=== PATIENT | female | born 1935 | race Caucasian/White ===

== ENCOUNTER → 2017-07-02 | Emergency (ER) | payer MEDICARE, OTHER ==
[~2017-07-02] MED LIST: Ciprofloxacin TAB* 500 MG PO ONE; NS 0.9% 1000 ML* 1,000 ML IV ONE; Ondansetron INJ* 2 MG/ML VIAL IV ONE; Ondansetron ODT TAB* 4 MG ONE; Ondansetron ODT TAB* 4 MG PO ONE
--- NOTE | 2017-07-02 06:29 | ED ---
Sunny Cross Angela, scribed for Penny Garnica MD on 07/02/17 at 0626 . Complex/Multi-Sys Presentation - HPI Summary HPI Summary: This pt is a 81 y/o female accompanied by her daughter presenting to [facility] via EMS c/o sudden onset of nausea, vomiting, and diarrhea upon waking up at 0500 today. Pt reports she was diaphoretic upon waking up. She notes she had some vomiting but not too much. Pt denies SOB, chest pain, abd pain. She has an upcoming endoscopy in 3 days, on . Her PCP is Dr. Graves. PMHx: DM, HTN, HLD. Pt denies PMHx of CHF, [place] or strokes. - History Of Current Complaint Chief Complaint: EDGeneral Time Seen by Provider: 07/02/17 06:11 Onset/Duration: Sudden Onset Timing: Constant Associated Signs And Symptoms: Positive: Nausea, Vomiting, Diarrhea, Diaphoresis. Negative: SOB, Chest Pain - Allergies/Home Medications Allergies/Adverse Reactions: Allergies Allergy/AdvReac Type Severity Reaction Status Date / Time Meperidine [From Demerol HCl] AdvReac Severe Vomiting Verified 07/02/17 06:02 enviromental Allergy Coughing Uncoded 07/02/17 06:03 PMH/Surg Hx/FS Hx/Imm Hx Endocrine/Hematology History: Reports: Hx Diabetes - WELL CONTROLLED Cardiovascular History: Reports: Hx Angina - LAST EPISODE MONTHS AGO, Hx Coronary Artery Disease, Hx Hypercholesterolemia, Hx Hypertension - WELL CONTROLLED, Hx Valvular Heart Disease - "Leaky valve", Other Cardiovascular Problems/Disorders - CATHERIZATION Denies: Hx Pacemaker/ICD Respiratory History: Reports: Hx Asthma GI History: Reports: Hx Gastroesophageal Reflux Disease - OCCASIONAL REFLUX, Other GI Disorders - HX DIVERTICULITIS History: Reports: Hx Renal Disease - abnormal gfr, Other Problems/ Disorders - INCONTINENCE Musculoskeletal History: Reports: Hx Tendonitis - RIGHT SHOULDER, Other Musculoskeletal History - ROM, PAIN IN BICEPT x3 months, no injury, PT no improvemnt Sensory History: Reports: Hx Cataracts, Hx Contacts or Glasses - READING GLASSES Denies: Hx Hearing Aid Opthamlomology History: Reports: Hx Cataracts, Hx Contacts or Glasses - READING GLASSES Psychiatric History: Reports: Hx Depression - HX OF Denies: Hx Panic Disorder - Cancer History Cancer Type, Location and Year: SKIN CA ON EAR AND UPPER CHEST AND 2011 ON R HAND - Surgical History Surgery Procedure, Year, and Place: RUPTURED DIVERTICULUM WITH COLOSTOMY AND REVERSAL 1979. TOTAL HYSTERECTOMY IN [place]. OPEN NADIA . R ROTATOR CUFF [place]PA[place] [facility] [place]UBAL [place]IG[place] . TONSILS CHILD. LUMBAR DISCECTOMY [place]. BILAT CATARACTS 2010 [facility] [place] Hx Anesthesia Reactions: No - Immunization History Immunizations Up to Date: Yes Infectious Disease History: No Infectious Disease History: Denies: Traveled Outside the US in Last 30 Days - Family History Known Family History: Positive: Cardiac Disease, Hypertension - Social History Lives: Alone Alcohol Use: None Substance Use Type: Reports: None Smoking Status (MU): Never Smoked Tobacco Review of Systems Positive: Skin Diaphoresis. Negative: Fever, Chills Eyes: Negative Negative: Chest Pain Negative: Shortness Of Breath Positive: Vomiting, Diarrhea, Nausea. Negative: Abdominal Pain All Other Systems Reviewed And Are Negative: Yes Physical Exam Triage Information Reviewed: Yes Vital Signs On Initial Exam: Initial Vitals Temp Pulse Resp BP Pulse Ox 96.8 F 61 12 212/77 95 07/02/17 06:01 07/02/17 06:01 07/02/17 06:01 07/02/17 06:01 07/02/17 06:01 Vital Signs Reviewed: Yes Appearance: Positive: Well-Appearing, No Pain Distress Skin: Positive: Warm, Skin Color Reflects Adequate Perfusion, Dry Eyes: Positive: EOMI, PRASHANTH ENT: Positive: Pharynx normal, TMs normal Neck: Positive: Supple, Nontender Respiratory/Lung Sounds: Positive: Clear to Auscultation, Breath Sounds Present. Negative: Rales, Rhonchi, Wheezes Cardiovascular: Positive: RRR. Negative: Murmur, Rub, Other - gallop Abdomen Description: Positive: Nontender, Soft. Negative: Distended, Guarding, Other: - rebound Bowel Sounds: Positive: Present Musculoskeletal: Positive: Strength/ROM Intact. Negative: Edema Left, Edema Right Neurological: Positive: Sensory/Motor Intact, Alert, Oriented to Person Place, Time, CN Intact II-III Psychiatric: Positive: Affect/Mood Appropriate - Tania Coma Scale Coma Scale Total: 15 Diagnostics - Vital Signs Vital Signs Temp Pulse Resp BP Pulse Ox 07/02/17 06:01 96.8 F 61 12 212/77 95 - Laboratory Lab Statement: Any lab studies that have been ordered have been reviewed, and results considered in the medical decision making process. Complex Multi-Symp Course/Dx Course Of Treatment: 81 yo who awakened suddenly with vomiting and diarrhea she is non toxic appearing awaiting ekg and labs and will be signed out to the am attending she does not have abd tenderness on exam - Diagnoses Provider Diagnoses: Nausea vomiting and diarrhea Discharge - Discharge Plan Condition: Stable Disposition: OTHER Discharge Disposition Comment: to be determined The documentation as recorded by the Sunny enriquez Angela accurately reflects the service I personally performed and the decisions made by me, Penny Garnica MD.
--- NOTE | 2017-07-02 06:37 | ED ---
Progress - Progress Note Progress Note: ekg 07/02/17 at 622 am nsr at 61 with lvh no pvcs no q's no st elevations unchanged from a previous ekg done on 05/29/12 Course/Dx - Course Course Of Treatment: 81 yo who awakened suddenly with vomiting and diarrhea she is non toxic appearing awaiting ekg and labs and will be signed out to the am attending she does not have abd tenderness on exam - Diagnoses Provider Diagnoses: Nausea vomiting and diarrhea
[2017-07-02 07:06] LABS: Hematocrit 40 % (35-47); Hemoglobin 13.6 g/dl (12.0-16.0); Mean Corpuscular HGB Conc 34 g/dl (31-36); Mean Corpuscular Hemoglobin 28 pg (27-31); Mean Corpuscular Volume 84 fL (80-97); Mean Platelet Volume 8 um3 (7.4-10.4); Red Blood Count 4.81 10^6/ul (4.0-5.4); Red Cell Distribution Width 14 % (10.5-15)
[2017-07-02 07:23] LABS: C Reactive Protein 5.15 mg/L (< 5.00); Calcium 9.4 mg/dL (8.6-10.3); EGFR African American 80.2 (>60); EGFR Non-African American 62.3 (>60); Globulin 2.8 g/dL (2-4); Potassium 3.6 mmol/L (3.5-5.0); Total Bilirubin 0.6 mg/dL (0.2-1.0); Total Protein 6.8 g/dL (6.4-8.9)
[2017-07-02 09:33] LABS: Urine Bacteria 1+ (Absent); Urine Bilirubin Negative (Negative); Urine Glucose Negative (Negative); Urine Nitrite Positive (Negative)
[2017-07-02 10:22] VITALS: BP 188/71
--- NOTE | 2017-07-03 07:16 | ED ---
Yaa Cross Alfonso, scribed for Jaquan Pérez MD on 07/02/17 at 0743 . Progress - Progress Note Progress Note: This patient is an 81 year old F BIBA to [facility] accompanied by two females with a chief complaint of N/V/D since 0500 this morning. She reports one long episode of diarrhea. The patient rates the pain 0/10 in severity. Symptoms aggravated by nothing. Symptoms alleviated by nothing. She denies a recent change in diet (pasta with tomato and meat sauce for dinner). She denies recent sick contacts. She denies recent travels. She denies recent abx use. PMHx includes HTN, CAD, and DM. Physical Exam Findings VITAL SIGNS: Reviewed. GENERAL: Patient is a well-developed and nourished female who is lying comfortable in the stretcher. Patient is not in any acute respiratory distress. HEAD AND FACE: Normocephalic and atraumatic. EYES: PERRLA, EOMI x 2, No injected conjunctiva. EARS: Hearing grossly intact. Ear canals and tympanic membranes are WNL. MOUTH: Oropharynx within normal limits. NECK: Supple, trachea is midline, no adenopathy, no JVD. CHEST: Symmetric, no tenderness at palpation LUNGS: Clear to auscultation bilaterally. No wheezing or crackles. CVS: RRR, S1 and S2 present, no murmurs or gallops appreciated. ABDOMEN: Soft, non-tender. No signs of distention. Positive bowel sounds. No rebound no guarding, and no masses palpated. No abdominal bruit or pulsations. EXTREMITIES: FROM in all major joints, no edema, no cyanosis or clubbing. NEURO: Alert and oriented x 3. No acute neurological deficits. Speech is normal. SKIN: Dry and warm Urinalysis is positive for UTI. The patients condition is stable and will be discharged to home with Dx of N/V/ D and UTI. Course/Dx - Diagnoses Provider Diagnoses: Nausea vomiting and diarrhea, UTI (urinary tract infection) The documentation as recorded by the Yaa enriquez Alfonso accurately reflects the service I personally performed and the decisions made by Beto hart Walter, MD.
--- NOTE | 2017-07-04 14:24 | PN ---
Progress Note - Progress Note Date of Service: 07/04/17 Note: Patient placed on cipro. not in system as was having issue with [employer]. spoke with patient and got prescription for pharmacy. Urine culture grew gram neg Bacilli >100,000. final culture shows cipro is sensitive to so no further action required.
== END ==
LOC: ED 05:55
DX: N39.0 Urinary tract infection, site not specified (principal); R11.2 Nausea with vomiting, unspecified; R19.7 Diarrhea, unspecified
CPT/HCPCS: 36415; 80053; 81003; 81015; 83605; 83690; 85025; 86140; 87040; 87077; 87086; 87186; 93005; 96374; 96376; 99283; A9270-GY; J2405

== ENCOUNTER 2017-11-25 11:29 | Emergency (ER) | payer MEDICARE, OTHER ==
[2017-11-25 12:10] VITALS: BP 171/76
--- NOTE | 2017-11-25 13:13 | UC ---
Roberto Cross Stephanie, scribed for Jonh Henderson MD on 11/25/17 at 1254 . FLU HPI - HPI Summary HPI Summary: The pt is an 82 y/o F presenting to with c/o influenza-like symptoms that began a few weeks ago. Symptoms include productive cough with yellow mucus ( started 3 days ago), itchy ears bilaterally, wheezing (started last night) and V /D (began last weekend). The pt denies fever and chills. The pt reports recent sick contacts. - History of Current Complaint Chief Complaint: UCRespiratory Stated Complaint: COUGH Time Seen by Provider: 11/25/17 12:26 Hx Obtained From: Patient, Family/Tailman - daughter ?: No Onset/Duration: Gradual Onset, Lasting Weeks - 2, Still Present Severity Currently: None Pain Intensity: 0 Pain Scale Used: 0-10 Numeric Associated Signs & Symptoms: Positive: Cough, Vomiting, Diarrhea. Negative: Fever - Allergy/Home Medications Allergies/Adverse Reactions: Allergies Allergy/AdvReac Type Severity Reaction Status Date / Time meperidine [From Demerol] Allergy Vomiting Verified 11/25/17 12:11 enviromental Allergy Coughing Uncoded 11/25/17 12:11 PMH/Surg Hx/FS Hx/Imm Hx Cardiovascular History: Hypertension - Surgical History Surgical History: Yes Surgery Procedure, Year, and Place: RUPTURED DIVERTICULUM WITH COLOSTOMY AND REVERSAL 1979. TOTAL HYSTERECTOMY IN [place]. OPEN NADIA . R ROTATOR CUFF REPAIR 2012 [facility] [place] TUBAL LIGATION . TONSILS CHILD. LUMBAR DISCECTOMY [place]. BILAT CATARACTS 2010 [facility] [place] [facility] [place] - Family History Known Family History: Positive: Cardiac Disease, Hypertension - Social History Occupation: Retired Lives: Long-Term Alcohol Use: None Substance Use Type: None Smoking Status (MU): Never Smoked Tobacco Review of Systems Constitutional: Negative Skin: Negative Eyes: Negative ENT: Other - itchy ears Respiratory: Cough, Other - wheezing Cardiovascular: Negative Gastrointestinal: Vomiting, Diarrhea Genitourinary: Negative Motor: Negative Neurovascular: Negative Musculoskeletal: Negative Neurological: Negative Psychological: Negative All Other Systems Reviewed And Are Negative: Yes Physical Exam Triage Information Reviewed: Yes Vital Signs: Initial Vital Signs Temp 98.0 F 11/25/17 12:08 Pulse 67 11/25/17 12:08 Resp 24 11/25/17 12:08 BP 171/76 11/25/17 12:08 Pulse Ox 96 11/25/17 12:08 Vital Signs Reviewed: Yes - Additional Comments General: Mildly ill-appearing, no pain distress Skin: warm, color reflects adequate perfusion, dry Head: normal Eyes: EOMI, PRASHANTH ENT: rhinorrhea Neck: supple, nontender, no edema Respiratory: CTA, breath sounds present Cardiovascular: RRR Abdomen: soft, nontender Bowel: present Musculoskeletal: normal, strength/ROM intact, no edema Neurological: normal, sensory/motor intact, A&O x3 Psychological: affect/mood appropriate Flu Course/Dx - Course Course Of Treatment: BP noted and advised to follow up with PCP. Medications reviewed. NO BODY ACHES, NO EDEMA. DISCUSSED CXR AND INFLUENZA SWAB; PATIENT DECLINES AT THIS TIME. SX X 2 WEEKS THEREFORE, WILL TREAT WITH ABX. - Differential Dx/Diagnosis Provider Diagnoses: BRONCHITIS WITH BRONCHOSPASM Discharge - Discharge Plan Condition: Stable Disposition: HOME Prescriptions: Albuterol HFA INHALER* [Ventolin HFA Inhaler*] 2 puff INH Q4H PRN #1 mdi PRN Reason: Wheezing Azithromycin TAB* [Zithromax TAB (Z-PATRICIA) 250 mg #6 tabs] 2 tab PO .TODAY, THEN 1 DAILY #1 patricia Patient Education Materials: Acute Bronchitis (ED), Bronchospasm (ED) Referrals: Quintin Graves MD [Primary Care Provider] - Additional Instructions: FOLLOW UP WITH YOUR DOCTOR. RETURN TO THE EMERGENCY DEPARTMENT FOR ANY WORSENING OF YOUR CONDITION OR QUESTIONS OR CONCERNS. YOUR BLOOD PRESSURE WAS ELEVATED DURING TODAY'S VISIT; FOLLOW UP WITH YOUR PCP WITHIN ONE WEEK FOR FURTHER EVALUATION. The documentation as recorded by the Roberto enriquez Stephanie accurately reflects the service I personally performed and the decisions made by me, Jonh Henderson MD.
== END 2017-11-25 12:52 | disposition home or self-care (01) ==
LOC: UCEAST 11:29
DX: J20.9 Acute bronchitis, unspecified (principal)
CPT/HCPCS: 99212; G0463

== ENCOUNTER 2018-05-30 07:47 | Day surgery (SDC) | payer MEDICARE, OTHER ==
[~2018-05-30 07:47] MED LIST changes: +Buffered Lidocaine 0.9% SYRIN* 5 ML/SYR SYRINGE INTRADERM ONE; -Ciprofloxacin TAB* 500 MG PO ONE; -NS 0.9% 1000 ML* 1,000 ML IV ONE; -Ondansetron INJ* 2 MG/ML VIAL IV ONE; -Ondansetron ODT TAB* 4 MG ONE; -Ondansetron ODT TAB* 4 MG PO ONE
[2018-05-30] MEDS ORDERED: ceFAZolin 2 GM PREMIX (*) 2 GM/50 ML BAG IVPB ONE (08:11)
[2018-05-30] MEDS ORDERED: Insulin LISPRO* 1 UNITS UNIT SUBCUT ONE (08:37)
[2018-05-30] MEDS ORDERED: Propofol* 10 MG/ML 20 ML BTL IV PUSH ONE ×2 (08:55→10:28)
[2018-05-30] MEDS ORDERED: Lidocaine 2% PF * 5 ML VIAL ONE (09:06)
[2018-05-30] MEDS ORDERED: Lidocain 1% EPI 1:100,000 * 30 ML MDV ONE (09:32)
[2018-05-30] MEDS ORDERED: Metoprolol Tartrate IV* 1 MG/ML 5 ML VIAL ONE (10:36)
[2018-05-30 12:01] VITALS: BP 120/87
[2018-05-30] MEDS ORDERED: Naloxone* 0.4 MG/ML 1 ML VIAL IV PRN (12:39)
== END 2018-05-30 12:44 | disposition home or self-care (01) ==
LOC: OR 07:47
PROVIDERS: ATTEND Plastic Surgery
DX: C44.311 Basal cell carcinoma of skin of nose (principal); E11.9 Type 2 diabetes mellitus without complications; Z79.4 Long term (current) use of insulin; I25.10 Atherosclerotic heart disease of native coronary artery without angina pectoris; I10 Essential (primary) hypertension; I34.0 Nonrheumatic mitral (valve) insufficiency; J45.909 Unspecified asthma, uncomplicated
CPT/HCPCS: 88305; 88331; 88332; J0690; J2704; J3490

== ENCOUNTER 2019-07-05 14:36 | Emergency (ER) | payer MEDICARE, OTHER ==
--- NOTE | 2019-07-05 15:04 | ED ---
Back Pain - HPI Summary HPI Summary: This patient is a 83 year old F presenting to ED with a chief complaint of low back pain since one week ago. Patient has been treated for spinal stenosis for a while. She previously had an MRI which showed a herniated disc. Patient saw the pain clinic three weeks ago and received an epidural for the pain, which helped only for a week and a half. Yesterday, the patient saw Dr. Gabi LAN, who ordered back XRs. However, she reports that the pain has started to radiate down the bilateral legs with tingling in the feet, which is new as of yesterday. Patient currently has an appointment with Dr. Ashley scheduled for 07/09/19. Patient is only taking pain medication (Tylenol with Codeine). The patient rates the pain 10/10 in severity. Symptoms aggravated by nothing. Symptoms alleviated by prior epidural treatment. Patient denies fever. - History of Current Complaint Chief Complaint: EDBackInjuryPain Stated Complaint: BACK PAIN PER DAUGHTER Time Seen by Provider: 07/05/19 14:56 Hx Obtained From: Patient Onset/Duration: Gradual Onset, Lasting Weeks - Started three weeks ago, worse as of one week ago, Still Present, Worse Since Onset/Duration: Started Weeks Ago - Started three weeks ago, worse as of one week ago, Still Present, Worse Since - One week ago Timing: Constant, Lasting Weeks Back Pain Location: Is Discrete @ - Low back, Radiates To - Bilateral legs Severity Initially: Moderate Severity Currently: Severe Pain Intensity: 10 Pain Scale Used: 0-10 Numeric Aggravating Symptom(s): Nothing Alleviating Symptom(s): Other - Epidural treatment Associated Signs And Symptoms: Positive: Tingling - In feet. Negative: Fever - Allergies/Home Medications Allergies/Adverse Reactions: Allergies Allergy/AdvReac Type Severity Reaction Status Date / Time meperidine [From Demerol] Allergy Vomiting Verified 07/05/19 14:50 enviromental Allergy Coughing Uncoded 07/05/19 14:50 PMH/Surg Hx/FS Hx/Imm Hx Endocrine/Hematology History: Reports: Hx Diabetes - WELL CONTROLLED FINGER STICK BID Cardiovascular History: Reports: Hx Angina, Hx Coronary Artery Disease, Hx Hypercholesterolemia, Hx Hypertension - WELL CONTROLLED, Hx Valvular Heart Disease - "Leaky valve", Other Cardiovascular Problems/Disorders - CATHERIZATION Denies: Hx Pacemaker/ICD Respiratory History: Reports: Hx Asthma GI History: Reports: Hx Gastroesophageal Reflux Disease, Other GI Disorders - ESOPHOGHSCOPY History: Reports: Hx Renal Disease - abnormal gfr, Other Problems/ Disorders - INCONTINENCE Musculoskeletal History: Reports: Hx Arthritis Denies: Hx Tendonitis - RIGHT SHOULDER, Other Musculoskeletal History Sensory History: Reports: Hx Cataracts, Hx Contacts or Glasses - READING GLASSES Denies: Hx Hearing Aid Opthamlomology History: Reports: Hx Cataracts, Hx Contacts or Glasses - READING GLASSES Neurological History: Reports: Other Neuro Impairments/Disorders - PAIN CLINIC PT Psychiatric History: Reports: Hx Depression - HX OF Denies: Hx Panic Disorder - Cancer History Cancer Type, Location and Year: SKIN CA ON EAR AND UPPER CHEST AND 2011 ON R HAND - Surgical History Surgery Procedure, Year, and Place: RUPTURED DIVERTICULUM WITH COLOSTOMY AND REVERSAL 1979. TOTAL [place]CTOMY IN [place]. OPEN NADIA . R ROT[place]FF [place] [facility] [place] . TONSILS CHILD. LUMBAR DISCECTOM[place]. [place] [facility] [place] Anesthesia Reactions: Yes - NAUSEA WITH DEMEROL Infectious Disease History: No Infectious Disease History: Denies: Traveled Outside the US in Last 30 Days - Family History Known Family History: Positive: Cardiac Disease, Hypertension - Social History Alcohol Use: None Hx Substance Use: No Substance Use Type: Reports: None Hx Tobacco Use: No Smoking Status (MU): Never Smoked Tobacco Have You Smoked in the Last Year: No Review of Systems Negative: Fever Musculoskeletal: Other - Back pain, radiating to bilateral legs with tingling in feet All Other Systems Reviewed And Are Negative: Yes Physical Exam - Summary Physical Exam Summary: Appearance: The patient is well-nourished in no acute distress and in no acute pain. Skin: The skin is warm and dry, and skin color reflects adequate perfusion. HEENT: The head is normocephalic and atraumatic. The pupils are equal and reactive. The conjunctivae are clear and without drainage. Nares are patent and without drainage. Mouth reveals moist mucous membranes, and the throat is without erythema and exudate. The external ears are intact. The ear canals are patent and without drainage. The tympanic membranes are intact. Neck: The neck is supple with full range of motion and non-tender. There are no carotid bruits. There is no neck vein distension. Respiratory: Chest is non-tender. Lungs are clear to auscultation and breath sounds are symmetrical and equal. Cardiovascular: Heart is regular rate and rhythm. There is no murmur or rub auscultated. There is no peripheral edema and pulses are symmetrical and equal. Abdomen: The abdomen is soft and non-tender. There are normal bowel sounds heard in all four quadrants and there is no organomegaly palpated. Musculoskeletal: There is no back tenderness noted. Extremities are non-tender with full range of motion. There is good capillary refill. There is no peripheral edema or calf tenderness elicited. Neurological: Patient is alert and oriented to person, place and time. The patient has symmetrical motor strength in all four extremities. Cranial nerves are grossly intact. Deep tendon reflexes are symmetrical and equal in all four extremities. Patient is neurologically intact. Psychiatric: The patient has an appropriate affect and does not exhibit any anxiety or depression. Triage Information Reviewed: Yes Vital Signs On Initial Exam: Initial Vitals Temp Pulse Resp BP Pulse Ox 97.8 F 73 18 146/84 92 07/05/19 14:38 07/05/19 14:38 07/05/19 14:38 07/05/19 14:38 07/05/19 14:38 Vital Signs Reviewed: Yes Diagnostics - Vital Signs Vital Signs Temp Pulse Resp BP Pulse Ox 07/05/19 14:38 97.8 F 73 18 146/84 92 - Laboratory Lab Statement: Any lab studies that have been ordered have been reviewed, and results considered in the medical decision making process. - Additional Comments Diagnostic Additional Comments: L-Spine MRI taken 06/03/19, impression: 1. VARYING DEGREES OF MULTILEVEL SPONDYLOSIS ABOVE. IN PARTICULAR, THIS RESULTS IN UP TO SEVERE SPINAL CANAL STENOSIS AT L3-L4. THERE IS MODERATE RIGHT NEURAL FORAMINAL STENOSIS AT L3-L4 AND L4-L5. 2. STATUS POST RIGHT HEMILAMINECTOMY AT L4-L5. Dr. Rivas has reviewed this radiology report. Re-Evaluation - Re-Evaluation First Eval Re-Evaluation Time: 17:35 Change: Improved Comment: With treatment, patient reports feeling better. Patient will be discharged home with dx of lumbar spinal stenosis. Patient understands and agrees with this plan. Back Pain Course/Dx - Course Course Of Treatment: Ms. Varela is a diagnosis spinal stenosis for which she 's had a fairly recent MRI scan. She is scheduled to meet with Dr. Ferrara on Sunday to discuss the next step. She comes in today because her legs feel weak. Her legs gave out on her while she was in the office of Dr. Ferrara yesterday. She denies any incontinence or difficulty with bowels or bladder. She was nontoxic in appearance with stable vitals and intact neurologically is near as I could tell. She was given a dose of steroids and warned that this could affect her blood sugars. She was also given Ativan as a muscle relaxer and ketorolac as an anti-inflammatory. She did feel improved and was able to ambulate about the department. I recommended that she follow up on Sunday as scheduled and return if her symptoms worsened. - Diagnoses Provider Diagnoses: Lumbar spinal stenosis Discharge ED - Sign-Out/Discharge Documenting (check all that apply): Patient Departure - Discharge Patient Received Moderate/Deep Sedation with Procedure: No - Discharge Plan Condition: Stable Disposition: HOME Patient Education Materials: Lumbar Spinal Stenosis (ED) Referrals: Lisbeth Odell MD [Primary Care Provider] - 3 Days Nomi Ferrara MD [Medical Doctor] - 07/09/19 Additional Instructions: FOLLOW-UP WITH YOUR PRIMARY CARE PROVIDER IN 2-3 DAYS FOR YOUR SYMPTOMS. FOLLOW- UP WITH DR. FERRARA ON SUNDAY. PLEASE RETURN TO THE ER FOR WORSENING OR CHANGING SYMPTOMS. - Billing Disposition and Condition Condition: STABLE Disposition: Home - Attestation Statements Document Initiated by Lisbeth: Yes Documenting Scribe: Gordo Childers Provider For Whom Lisbeth is Documenting (Include Credential): Reed Rivas MD Scribe Attestation: I, Gordo Childers, scribed for Reed Rivas MD on 07/06/19 at 0757. Scribe Documentation Reviewed: Yes Provider Attestation: The documentation as recorded by the Gordo enriquez accurately reflects the service I personally performed and the decisions made by me, Reed Rivas MD Status of Scribnaeem Document: Viewed
[2019-07-05] MEDS ORDERED: methylPREDNISolone 125 MG* 2 ML VIAL IM ONE (15:16)
--- OUTSIDE RECORDS SUMMARY | 2019-07-05 15:38 | XMS REPORT | Continuity of Care Document ---
:1935 External Reference #:[id number] Author Name Marly Mcgowan M.D. (transmitted by agent of provider Muriel Malik) Address [address] [facility], [place] [address] Care Team Providers Name Role Phone Elier Eller MD - Orthopaedic Care Team Information Carbon Printer [phone] Surgery Morales Vargas MD - Urology Care Team Information Carbon Printer [phone] Lenny Herrera MD - Endocrinology, Care Team Information Carbon Printer [phone] Diabetes & Metabolism Diana Randall MD - Pulmonary Care Team Information Carbon Printer Disease Monica Queen MD - Hematology & Care Team Information Carbon Printer Oncology Dennys Harrington MD - Ophthalmology Care Team Information Carbon Printer Lisbeth Odell M.D. 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 Onset: 11/13/2011 Mitral valve disorder Antonia Gonzales M.D. 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 Diana Randall MD Onset: 03/14/2016 Obesity Diana Randall MD Onset: 10/24/2016 Localized, primary osteoarthritis Barbie Montgomery MD Onset: 01/23/2019 Social History Type Date Description Comments Sex Unknown Tobacco Use Start: Unknown Never Smoked Exposed to second hand Cigarettes smoke for 50 years ETOH Use 11/03/2016 Denies alcohol use Tobacco Use Start: Unknown Patient has never smoked Recreational Drug Use Denies Drug Use Smoking Status Reviewed: 05/26/19 Patient has never smoked Exercise Type/Frequency Exercises sporadically Walks occasionally Allergies, Adverse Reactions, Alerts Active Allergies Reaction Severity Comments Date Demerol nausea and vomiting 04/09/2008 Environmental dogs, cats, dust, dustmites, grass 02/10/2010 Detrol chest tightness 03/31/2015 Medications Active Medications SIG Qnty Indications Ordering Date Provider Alexandro Rehman 34 units SC at 3ml Lisbeth Odell, 100Unit/ML bedtime Dx E11.9 MD Thorne Solution Pen-Inject Ov 19 Tramadol HCL 1 by mouth every 60tabs M54.5 Lisbeth Odell, 50mg Tablets 6-8 hours as MD Thorne needed for pain Trulicity 0.75mg sc once a 6ml E11.9 Lisbeth Odell, 0.75mg/0.5ML week (refills for MD Thorne Solution Pen-Inject 90 days per insurance) Albuterol Sulfate 1 vial via neb 75ml J45.901 Lisbeth Odell, (2.5mg/3ML) every 4 hours for MD Thorne 0.083% Nebulizer wheezing Shingrix 0.5 milliliters 2units Quintni Medina 50mcg/0.5ML intramuscular now Ely 9 Suspension Rec and 2-3 months M.D.,FACP later repeat BD Uf Short Pen Needle Use Up To Four 300units Quintin Medina [id number] Times Daily And as [place], 9 Needed M.D.,FACP Lantus 34 units subq 20ml Lisbeth Odell, 100Unit/ML Solution every night at 8 bedtime DX E11.9 Ov7-2-19 Advair HFA 2 puff twice a day 36gm R06.02 Lisbeth Odell, 115-21mcg/Act MD Fernando Aerosol Metformin HCL 1 by mouth twice a 180tabs Lisbeth Odell, 500mg Tablets day 8 Atenolol 1 by mouth every 90tabs Lisbeth Odell, 25mg Tablets day MD Fernando Ultra-Thin II Pen test up to four 300units Quintin Medina [place]/Short/31GX5/16" times daily and as [place], 7 31G X needed M.D.,FACP 8 mm Misc Vitamin D 1 tab po qd 90tabs Quintin Medina (Cholecalciferol) [place], 7 1000Unit M.D.,FACP Tablets Walker Auto Glides/5 wheeled walker 1units Quintin Medina Adjustment Holes/-10/15" with seat and [place], 6 brakes M.D.,FACP 1-10/15" Misc Nitrostat one sl q5min up to 25tabs Qutaybeh S. 0.4mg Tablets Sub 3 doses as needed Christian, 6 M.D. Aspirin 1 by mouth every I25.10 Quintin Medina 81mg Tablets day [place], 5 M.D.,FACP Isosorbide Mononitrate 1 by mouth every 90tabs Lisbeth Odell, ER day MD 5 60mg Tablets ER 24HR Atorvastatin Calcium take 1 tablet by 90tabs Lisbeth Odell, 10mg mouth every MD 2 Tablets evening Omeprazole take one capsule 90caps K21.9 Lisbethmartine AlexandreOdell, 20mg Capsules DR every day as MD 1 needed Sertraline HCL take 1 tablet 90tabs Lisbeth Odell, 50mg Tablets every day MD 1 Hydrochlorothiazide take 1/2 tablet by 45tabs Lisbeth Odell, 25mg mouth every day MD 0 Tablets Amlodipine take one capsule 90caps I10 Lisbethmartine Odell, Besylate/Benazepril by mouth every day 8 Hydrochloride 5-20mg Capsules Multi For Her 1 by mouth every 90caps Unknown Capsules day 0 Tylenol 1 tab at bedtime Unknown 325mg Tablets 0 History Medications Prednisone 4 tabs every day for 28tabs J45.901 Lisbethmartine Odell, 02/17/2019 - 10mg 4 days, then reduce MD 03/10/2019 Tablets by 1 tab every 2 days until finished Trulicity inject 1 dose 2ml Lisbeth Cass, 02/12/2019 - subcutaneously once MD 03/04/2019 1.5mg/0.5ML weekly Solution Pen-Inject Carisoprodol Take one tablet by 90tabs M54.5 Quintin Medina 11/29/2018 - 250mg mouth up to three [place], 11/29/2018 Tablets times a day as needed M.D.,FACP for pain. Tizanidine HCL Take one tablet by 90caps M54.5 Quintin Medina 11/29/2018 - 2mg mouth up to three [place], 02/12/2019 Capsules times a day M.D.,FACP Medications Administered in Office Medication SIG Qnty Indications Ordering Provider Date Triamcinolone (Kenalog) Barbie Montgomery MD 01/23/2019 Injection Depomedrol 80MG Elier Eller M.D. 07/30/2012 Injection Immunizations CPT Code Status Date Vaccine Reaction Lot # [id number] Given 07/12/2018 Influenza Virus Vaccine, [id number] Quadrivalent, Split, Preservative Free 86024 Given 11/05/2017 Influenza Virus Vaccine, [id number] Quadrivalent, Split, Preservative Free 93403 Given 10/08/2016 Influ Virus Vaccine, Quadrivalent, Split Virus, [place] [address] Given 09/23/2015 Influenza Virus Vaccine, no r eaction noted [id number] Quadrivalent, Split, Preservative Free 31923 Given 03/31/2015 Pneumococcal Conjugate Vaccine [id number] Valent For Intramuscular Use 94627 Given 07/13/2014 Influenza Virus Vaccine, [id number] Quadrivalent, Split, Preservative Free 82600 Given 08/08/2013 Flu Vaccine Split Virus [id number] Preservative Free For Indiv 3Yr Older Q2038 Given 07/09/2012 Fluzone Vaccine [id number] 08118 Given 03/28/2012 Zoster (Zostavax) [id number] 27713 Given 02/27/2012 Tdap - [id number] Tetanus/Diptheria/Acellular Pertussis Q2038 Given 09/22/2011 Fluzone Vaccine [id number] 57567 Given 11/25/2009 Influenza Virus 3Yrs & Over [id number] 71810 Given 11/19/2009 Influenza Virus Vaccine, Pandemic Formulation 12521 Given 07/17/2003 Pneumonia Vaccine Vital Signs Date Vital Result Comment 05/26/2019 11:43am Height 62 inches 5'2" Weight 182.00 lb Heart Rate 77 /min BP Systolic Sitting 128 mmHg BP Diastolic Sitting 70 mmHg Pain Level 10 O2 % BldC Oximetry 95 % BMI (Body Mass Index) 33.3 kg/m2 05/13/2019 10:43am Height 62 inches 5'2" Weight 180.12 lb Heart Rate 62 /min BP Systolic 137 mmHg BP Diastolic 78 mmHg O2 % BldC Oximetry 97 % BMI (Body Mass Index) 32.9 kg/m2 Results Test Date Facility Test Result H/L Range Note Laboratory test 05/13/2019 [facility] Hemoglobin A1c 7.4 High 5-7 finding Order 02/17/2019 [facility] Nebulizer <pending> Treatment Basic Metabolic 02/12/2019 [facility] Sodium 139 mmol/L Normal 135-[address] [place] [address] [phone] Potassium 4.3 mmol/L Normal 3.5-5.0 Chloride 102 mmol/L Normal 101-111 Co2 Carbon Dioxide 27 mmol/L Normal 22-32 Anion Gap 10 mmol/L Normal 2-11 Glucose 99 mg/dL Normal 70-100 Blood Urea Nitrogen 32 mg/dL High 6-24 Creatinine 1.06 mg/dL High 0.51-0.95 BUN/Creatinine Ratio 30.2 High 8-20 Calcium 10.5 mg/dL High 8.6-10.3 Egfr Non- 49.4 >60 Egfr 59.8 >60 1 Urinalysis Profile 02/12/2019 [facility] Urine Color Yellow [address] [place] [address] [phone] Urine Appearance Clear Urine Specific [place] 1.017 Normal 1.010-1.030 Urine pH 5.0 Normal 5-9 Urine Urobilinogen Negative Negative Urine Ketones Negative Negative Urine Protein Negative Negative Urine Leukocytes Negative Negative Urine Blood Negative Negative Urine Nitrite Negative Negative Urine Bilirubin Negative Negative Urine Glucose Negative Negative Laboratory test 02/12/2019 [facility] Magnesium 1.7 mg/dL Low 1.9-2.7 finding [address] [place] [address] [phone] Laboratory test 01/15/2019 [facility] Hemoglobin A1c 7.1 High 5-7 finding 1 Because ethnic data is not always readily available, this report includes an eGFR for both -Americans and non- Americans. The National Kidney Disease Education Program (NKDEP) does not endorse the use of the MDRD equation for patients that are not between the ages of 18 and 70, are , have extremes of body size, muscle mass, or nutritional status, or are non- or non-. According to the National Kidney Foundation, irrespective of diagnosis, the stage of the disease is based on the level of kidney function: Stage Description GFR(mL/min/1.73 m(2)) 1 Kidney damage with normal or decreased GFR 90 2 Kidney damage with mild decrease in GFR 60-89 3 Moderate decrease in GFR 30-59 4 Severe decrease in GFR 15-29 5 Kidney failure <15 (or dialysis) Procedures Date Code Description Status 02/17/2019 03228 Inhalation [place] For Acute Airway Obstruction Completed W/Nebulizer/Inhaler 01/23/2019 52595 Inject/Drain Joint/Bursa Major W/O US Completed 10/29/2018 369895717 Diabetic Retinal Eye Exam Completed 09/05/2017 800886058 Diabetic Retinal Eye Exam Completed 07/04/2016 628278027 Diabetic Retinal Eye Exam Completed 04/02/2015 322137821 Diabetic Retinal Eye Exam Completed 07/30/2013 082320596 Diabetic Retinal Eye Exam Completed 03/01/2012 361274790 Bone Mineral Density Test Completed Medical Devices Description No Information Available Encounters Type Date Location Provider Dx Diagnosis Office Visit 05/13/2019 [facility] Lisbeth Odell MD E11.9 Type 2 diabetes 10:40a Medicine - [facility] mellitus without complications I10 Essential (primary) hypertension M54.41 Lumbago with sciatica, right side Office Visit 04/08/2019 3:00p [facility] Lisbeth Odell M54.5 Low back pain Medicine - MD [facility] Office Visit 03/10/2019 2:40p [facility] Lisbeth Odell, E11.9 Type 2 diabetes Medicine - MD mellitus without [facility] complications J45.909 Unspecified asthma, uncomplicated Office Visit 03/04/2019 [facility] Barbie Montgomery, M17.11 Unilateral primary 2:15p Services Of osteoarthritis, right C.M.A. knee M21.061 Valgus deformity, not elsewhere classified, right knee Office Visit 02/17/2019 2:00p [facility] Lisbeth Odell, J45.901 Unspecified asthma Medicine - MD with (acute) [facility] exacerbation Office Visit 02/12/2019 11:40a [facility] Adelina E11.9 Type 2 diabetes Medicine - Marker, RPA-C mellitus without [facility]cmob complications R25.2 Cramp and spasm Office Visit 01/23/2019 Orthopedic Barbie Montgomery, M17.11 Unilateral primary 10:30a Services Of osteoarthritis, right C.M.A. knee M21.061 Valgus deformity, not elsewhere classified, right knee Office Visit 11/29/2018 1:00p [facility] Adelina Alba, M54.5 Low back pain Medicine - [address] RPA-C M25.561 Pain in right knee Assessments Date Code Description Provider 05/26/2019 M48.07 Spinal stenosis, lumbosacral region Marly Mcgowan M.D. 05/13/2019 E11.9 Type 2 diabetes mellitus without Lisbeth Odell, MD complications 05/13/2019 I10 Essential (primary) hypertension Lisbeth Odell MD 05/13/2019 M54.41 Lumbago with sciatica, right side Lisbeth Odell MD 04/08/2019 M54.5 Low back pain Lisbeth Odell MD 03/10/2019 E11.9 Type 2 diabetes mellitus without Lisbeth Odell MD complications 03/10/2019 J45.909 Unspecified asthma, uncomplicated Lisbeth Odell MD 03/04/2019 M17.11 Unilateral primary osteoarthritis, right Barbie Montgomery MD knee 03/04/2019 M21.061 Valgus deformity, not elsewhere classified, Barbie Montgomery MD right knee 02/17/2019 J45.901 Unspecified asthma with (acute) exacerbation Lisbeth Odell MD 02/12/2019 E11.9 Type 2 diabetes mellitus without Adelina Marker, RPA-C complications 02/12/2019 R25.2 Cramp and spasm Adelina Marker, RPA-C 01/23/2019 M17.11 Unilateral primary osteoarthritis, right Barbie Montgomery MD knee 01/23/2019 M21.061 Valgus deformity, not elsewhere classified, Barbie Montgomery MD right knee 01/15/2019 Z00.00 Encounter for general adult medical Adelina Marker, RPA-C examination without abno 01/15/2019 M25.561 Pain in right knee Adelina Marker, RPA-C 01/15/2019 E11.9 Type 2 diabetes mellitus without Adelina Marker, RPA-C complications 01/15/2019 G31.84 Mild cognitive impairment, so stated Adelina Marker, RPA-C 11/29/2018 M54.5 Low back pain Adelina Marker, RPA-C 11/29/2018 M25.561 Pain in right knee Adelina Marker, RPA-C Plan of Treatment Future Appointment(s):11/17/2019 1:00 pm - Marly Mcgowan M.D. at [facility] - [facility]05/26/2019 - Marly Mcgowan M.D.M48.07 Spinal stenosis , lumbosacral regionNew Xrays:MRI Lumbar Spine W/O, Ordered: 05/26/19Comments: stop the physical therapy and we have to evaluate your pain with an MRI as I am concerned about spinal stenosis Functional Status Description No Information Available Mental Status Description No Information Available Referrals Refer to Reason for Referral Status Appt Date Barbie Montgomery MD right knee pain not responding to PT Sent 01/23/[address] [place] [id number] [phone]
--- OUTSIDE RECORDS SUMMARY | 2019-07-05 15:38 | XMS REPORT | Continuity of Care Document ---
:1935 External Reference #:[id number] Author Name Marly Mcgowan M.D. (transmitted by agent of provider Muriel Malik) Address [address] [facility], [place] [address] Care Team Providers Name Role Phone Elier Eller MD - Orthopaedic Care Team Information Vp Respiratory Surgery Morales Vargas MD - Urology Care Team Information Vp Respiratory [phone] Lenny Herrera MD - Endocrinology, Care Team Information Vp Respiratory [phone] Diabetes & Metabolism Diana Randall MD - Pulmonary Care Team Information Vp Respiratory [phone] Disease Monica Queen MD - Hematology & Care Team Information Vp Respiratory Oncology Dennys Harrington MD - Ophthalmology Care Team Information Vp Respiratory [phone] Lisbeth Odell M.D. - Family Medicine Care Team Information Vp Respiratory [phone] Problems Active Problems Provider Date Renal disorder [...] disease of Aubrey Ordoñez NP Onset: 07/01/2015 [place] coronary artery with unstable angina pectoris Disturbance [...] 0.083% Nebulizer wheezing Shingrix 0.5 milliliters 2units Quintin Medina 50mcg/0.5ML intramuscular now Ely 9 Suspension Rec and 2-3 months M.D.,FACP later repeat BD Uf Short Pen Needle Use Up To Four 300units Quintin Medina [id number] Times Daily And as Ely, 9 Needed [...] test up to four 300units Quintin Medina [place]/Short/31GX5/16" times daily and as [place], 7 31G X needed M.D.,FACP 8 mm Misc Vitamin D 1 tab po qd 90tabs Quintin Medina (Cholecalciferol) [place], 7 1000Unit M.D.,FACP Tablets Walker Auto Glides/5 wheeled walker 1units Quintin Medina Adjustment Holes/-10/15" with seat and [place], 6 brakes M.D.,FACP 1-10/15" Misc Nitrostat one sl q5min up to 25tabs Qutaybeh S. 0.4mg Tablets Sub 3 doses as needed Christian, 6 M.D. Aspirin 1 by mouth every I25.10 Quintin Medina 81mg Tablets day [place], 5 M.D.,FACP Isosorbide Mononitrate 1 by mouth [...] 11/29/2018 - 250mg mouth up to three [place], 11/29/2018 Tablets times a day as needed M.D.,FACP for pain. Tizanidine HCL Take one tablet by 90caps M54.5 Quintin Medina 11/29/2018 - 2mg mouth up to three [place], 02/12/2019 Capsules times a day M.D.,FACP Medications Administered in Office Medication SIG Qnty Indications Ordering Provider Date Triamcinolone (Kenalog) Barbie Montgomery MD 01/23/2019 Injection Depomedrol 80MG Elier Eller M.D. 07/30/2012 Injection Immunizations CPT Code Status Date Vaccine Reaction Lot # [id number] Given 07/12/2018 Influenza Virus Vaccine, [id number] Quadrivalent, Split, Preservative Free 84169 Given 11/05/2017 Influenza Virus Vaccine, [id number] Quadrivalent, Split, Preservative Free 50485 Given 10/08/2016 Influ Virus Vaccine, Quadrivalent, Split Virus, [place] [address] Given 09/23/2015 Influenza Virus Vaccine, no r eaction noted [id number] Quadrivalent, Split, Preservative Free 27640 Given 03/31/2015 Pneumococcal Conjugate Vaccine [id number] 13 Valent For Intramuscular Use 91702 Given 07/13/2014 Influenza Virus Vaccine, [id number] Quadrivalent, Split, Preservative Free 47690 Given 08/08/2013 Flu Vaccine Split Virus [id number] Preservative Free For Indiv 3Yr Older Q2038 Given 07/09/2012 Fluzone Vaccine [id number] 93757 Given 03/28/2012 Zoster (Zostavax) [id number] 04254 Given 02/27/2012 Tdap - [id number] Tetanus/Diptheria/Acellular Pertussis Q2038 Given 09/22/2011 Fluzone Vaccine [id number] 44795 Given 11/25/2009 Influenza Virus 3Yrs & Over [id number] 08042 Given 11/19/2009 Influenza Virus Vaccine, Pandemic Formulation 97019 Given 07/17/2003 Pneumonia Vaccine Vital Signs Date [...] Result H/L Range Note Laboratory test 05/13/2019 [facility] Hemoglobin A1c 7.4 High 5-7 finding Order 02/17/2019 [facility] Nebulizer <pending> Treatment Basic Metabolic 02/12/2019 [facility] Sodium 139 mmol/L Normal 135-[address] [place] [address] [phone] Potassium 4.3 mmol/L Normal 3.5-5.0 Chloride 102 mmol/L Normal 101-111 Co2 Carbon Dioxide 27 mmol/L Normal 22-32 Anion Gap 10 mmol/L Normal 2-11 Glucose 99 mg/dL Normal 70-100 Blood Urea Nitrogen 32 mg/dL High 6-24 Creatinine 1.06 mg/dL High 0.51-0.95 BUN/Creatinine Ratio 30.2 High 8-20 Calcium 10.5 mg/dL High 8.6-10.3 Egfr Non- 49.4 >60 Egfr 59.8 >60 1 Urinalysis Profile 02/12/2019 [facility] Urine Color Yellow [address] [place] [address] [phone] Urine Appearance Clear Urine Specific [place] 1.017 Normal 1.010-1.030 Urine pH 5.0 Normal 5-9 Urine Urobilinogen Negative Negative Urine Ketones Negative Negative Urine Protein Negative Negative Urine Leukocytes Negative Negative Urine Blood Negative Negative Urine Nitrite Negative Negative Urine Bilirubin Negative Negative Urine Glucose Negative Negative Laboratory test 02/12/2019 [facility] Magnesium 1.7 mg/dL Low 1.9-2.7 finding [address] [place] [address] [phone] Laboratory test 01/15/2019 [facility] Hemoglobin A1c 7.1 High 5-7 [...] dialysis) Procedures Date Code Description Status 02/17/2019 34344 Inhalation [place] For Acute Airway Obstruction Completed W/Nebulizer/Inhaler 01/23/2019 97716 Inject/Drain Joint/Bursa Major W/O US Completed 10/29/2018 757218881 Diabetic Retinal Eye Exam Completed 09/05/2017 798004209 Diabetic Retinal Eye Exam Completed 07/04/2016 067595359 Diabetic Retinal Eye Exam Completed 04/02/2015 450700431 Diabetic Retinal Eye Exam Completed 07/30/2013 076395831 Diabetic Retinal Eye Exam Completed 03/01/2012 517108326 Bone Mineral Density Test Completed Medical Devices [...] 1:00 pm - M[facility] M[facility] - Marly Mcgowan M.D.M48.07 Spinal stenosis , lumbosacral regionComments:stop the physical therapy and we have to evaluate your pain with an MRI as I am concerned about spinal stenosis Functional Status Description No Information Available Mental Status Description No Information Available Referrals Refer to Reason for Referral Status Appt Date Barbie Montgomery MD right knee pain not responding to PT Sent 01/23/[address] [place] [phone]
--- OUTSIDE RECORDS SUMMARY | 2019-07-05 15:38 | XMS REPORT | Continuity of Care Document ---
:1935 External Reference #:[id number] Author Name RIKY Lynch (transmitted by agent of provider Mckenna Moya) Address [address] [place] [address] Care Team Providers Name Role Phone Elier Eller MD - Orthopaedic Care Team Information P[place] Surgery Morales Vargas MD - Urology Care Team Information Pipe Buffer [phone] Lenny Herrera MD - Endocrinology, Care Team Information Pipe Buffer Diabetes & Metabolism Diana Randall MD - Pulmonary Care Team Information Pipe Buffer [phone] Disease Monica Bynum MD - Hematology & Care Team Information Pipe Buffer Oncology Dennys Harrington MD - Ophthalmology Care Team Information Pipe Buffer [phone] Lisbeth Odell M.D. 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 Disturbance [...] Use Denies Drug Use Smoking Status Reviewed: 07/04/19 Patient has never smoked Exercise Type/Frequency Exercises sporadically Walks occasionally Allergies, Adverse Reactions, Alerts Active Allergies Reaction Severity Comments Date Demerol nausea and vomiting 04/09/2008 Environmental dogs, cats, dust, dustmites, grass 02/10/2010 Detrol chest tightness 03/31/2015 Medications Active Medications SIG Qnty Indications Ordering Date Provider Alexandro Rehman 34 units SC at 3ml Lisbeth Odell, 100Unit/ML bedtime Dx E11.9 MD Thorne Solution Pen-Inject Ov 7--19 Tramadol HCL 1 by mouth every 60tabs [...] Use Up To Four 300units Quintin Medina [id number] Times Daily And as Michie, 9 Needed M.D.,FACP Lantus 34 units subq 20ml Lisbeth Odell, 100Unit/ML Solution every night at MD Fernando bedtime DX E11.9 Ov7-2-19 Advair HFA 2 puff twice a day 36gm R06.02 Lisbeth Odell, 115-21mcg/Act MD Fernando Aerosol Metformin HCL 1 by mouth twice a 180tabs Lisbeth Odell, 500mg Tablets day MD Fernando Atenolol 1 by mouth every 90tabs Lisbeth Odell, 25mg Tablets day MD Fernando Ultra-Thin II Pen test up to four 300units Quintin Medina [place]/Short/31GX5/16" times daily and as Ely, 7 31G X needed M.D.,FACP 8 mm Misc Vitamin D 1 tab po qd 90tabs Quintin Medina (Cholecalciferol) Michie, 7 1000Unit M.D.,FACP Tablets Walker Auto Glides/5 wheeled walker 1units Quintin Medina Adjustment Holes/-10/15" with seat and Michie, 6 brakes M.D.,FACP 1-10/15" Misc Nitrostat one sl q5min up to 25tabs Qutaybeh S. 0.4mg Tablets Sub 3 doses as needed Christian, 6 M.D. Aspirin 1 by mouth every I25.10 Quintin Medina 81mg Tablets day Michie, 5 M.D.,FACP Isosorbide Mononitrate 1 by mouth every 90tabs Lisbeth Odell, ER day MD 5 60mg Tablets ER 24HR Atorvastatin Calcium take 1 tablet by 90tabs Lisbeth Persone, 10mg mouth every MD 2 Tablets evening Omeprazole take one capsule 90caps K21.9 Lisbeth Odell, 20mg Capsules DR every day as MD [...] Her 1 by mouth every 90caps Unknown 00/000 Capsules day 0 History Medications Acetaminophen-Codeine #4 one by mouth every 28tabs Lisbeth Odell, 2018 - 300-60mg 6 hours as needed MD Unknown Tablets for pain Prednisone 4 tabs every day 28tabs J45.9 Lisbethmartine Odell, 02/17/2019 - 10mg Tablets for 4 days, then 01 MD 03/10/2019 reduce by 1 tab every 2 days until finished Trulicity inject 1 dose 2ml Lisbeth Odell, 02/12/2019 - 1.5mg/0.5ML Solution subcutaneously once MD 03/04/2019 Pen-Inject weekly Medications Administered in Office Medication SIG Qnty Indications Ordering Provider Date Triamcinolone (Kenalog) Barbie Montgomery MD 01/23/2019 Injection Depomedrol 80MG Elier Eller M.D. 07/30/2012 Injection Immunizations CPT Code Status Date Vaccine Reaction Lot # 61099 Given 07/12/2018 Influenza Virus Vaccine, [id number] Quadrivalent, Split, Preservative Free 52864 Given 11/05/2017 Influenza Virus Vaccine, [id number] Quadrivalent, Split, Preservative Free 59458 Given 10/08/2016 Influ Virus Vaccine, Quadrivalent, Split Virus, [place] [address] Given 09/23/2015 Influenza Virus Vaccine, no r eaction noted [id number] Quadrivalent, Split, Preservative Free 63584 Given 03/31/2015 Pneumococcal Conjugate Vaccine [id number] 13 Valent For Intramuscular Use 46290 Given 07/13/2014 Influenza Virus Vaccine, [id number] Quadrivalent, Split, Preservative Free 72702 Given 08/08/2013 Flu Vaccine Split Virus [id number] Preservative Free For Indiv 3Yr Older Q2038 Given 07/09/2012 Fluzone Vaccine [id number] 88231 Given 03/28/2012 Zoster (Zostavax) [id number] 02172 Given 02/27/2012 Tdap - [id number] Tetanus/Diptheria/Acellular Pertussis Q2038 Given 09/22/2011 Fluzone Vaccine [id number] 26026 Given 11/25/2009 Influenza Virus 3Yrs & Over [id number] 07567 Given 11/19/2009 Influenza Virus Vaccine, Pandemic Formulation 88556 Given 07/17/2003 Pneumonia Vaccine Vital Signs Date Vital Result Comment 07/04/2019 3:03pm Height 62 inches 5'2" Weight 182.00 lb BP Systolic 120 mmHg BP Diastolic 64 mmHg Pain Level 10 BMI (Body Mass Index) 33.3 kg/m2 05/26/2019 11:43am Height 62 inches 5'2" Weight 182.00 lb Heart Rate 77 /min BP Systolic Sitting 128 mmHg BP Diastolic Sitting 70 mmHg Pain Level 10 O2 % BldC Oximetry 95 % BMI (Body Mass Index) 33.3 kg/m2 Results Test Date Facility Test Result H/L Range Note Laboratory test 05/13/2019 [facility] In House Hemoglobin A1c 7.4 High 5-7 finding Order 02/17/2019 [facility]-House Nebulizer <pending> Treatment Basic Metabolic 02/12/2019 [facility] Sodium 139 mmol/L Normal 135-[address] [place] [address] [phone] Potassium 4.3 mmol/L Normal 3.5-5.0 Chloride 102 mmol/L Normal 101-111 Co2 Carbon Dioxide 27 mmol/L Normal 22-32 Anion Gap 10 mmol/L Normal 2-11 Glucose 99 mg/dL Normal 70-100 Blood Urea Nitrogen 32 mg/dL High 6-24 Creatinine 1.06 mg/dL High 0.51-0.95 BUN/Creatinine Ratio 30.2 High 8-20 Calcium 10.5 mg/dL High 8.6-10.3 Egfr Non- 49.4 >60 Egfr 59.8 >60 1 Urinalysis Profile 02/12/2019 [facility] Urine Color Yellow [address] [place] [address] [phone] Urine Appearance Clear Urine Specific [place] 1.017 Normal 1.010-1.030 Urine pH 5.0 Normal 5-9 Urine Urobilinogen Negative Negative Urine Ketones Negative Negative Urine Protein Negative Negative Urine Leukocytes Negative Negative Urine Blood Negative Negative Urine Nitrite Negative Negative Urine Bilirubin Negative Negative Urine Glucose Negative Negative Laboratory test 02/12/2019 [facility] Magnesium 1.7 mg/dL Low 1.9-2.7 finding [address] [place] [address] [phone] Laboratory test 01/15/2019 [facility] Hemoglobin A1c 7.1 High 5-7 [...] dialysis) Procedures Date Code Description Status 02/17/2019 68040 Inhalation [place] For Acute Airway Obstruction Completed W/Nebulizer/Inhaler 01/23/2019 25049 Inject/Drain Joint/Bursa Major W/O US Completed 10/29/2018 578684811 Diabetic Retinal Eye Exam Completed 09/05/2017 097283148 Diabetic Retinal Eye Exam Completed 07/04/2016 536665253 Diabetic Retinal Eye Exam Completed 04/02/2015 010149843 Diabetic Retinal Eye Exam Completed 07/30/2013 288435417 Diabetic Retinal Eye Exam Completed 03/01/2012 626438047 Bone Mineral Density Test Completed Medical Devices Description No Information Available Encounters Type Date Location Provider Dx Diagnosis Office Visit 07/04/2019 Neurosurgery Josseline Shetty, 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 lumbosacral region [facility] Office Visit 05/13/2019 10:40a [facility] Lisbeth Odell, E11.9 Type 2 diabetes Medicine - MD mellitus without Ccmob complications I10 Essential (primary) hypertension M54.41 Lumbago with sciatica, right side Office Visit 04/08/2019 3:00p [facility] Lisbeth Odell, M54.5 Low back pain Medicine - MD Ccmob Office Visit 03/10/2019 2:40p [facility] Lisbeth Odell, E11.9 Type 2 diabetes Medicine - MD mellitus without Ccmob complications J45.909 Unspecified asthma, uncomplicated Office Visit 03/04/2019 Monico Montgomery, M17.11 Unilateral primary 2:15p Orthopedics at osteoarthritis [place] right knee M21.061 Valgus deformity, not elsewhere classified, right knee Office Visit 02/17/2019 2:00p [facility] Lisbeth Odell, J45.901 Unspecified asthma Medicine - MD with (acute) Ccmob exacerbation Office Visit 02/12/2019 11:40a [facility] Adelina E11.9 Type 2 diabetes Medicine - Marker, RPA-C mellitus without Ccmob complications R25.2 Cramp and spasm Office Visit 01/23/2019 Monico Montgomery, M17.11 [facility]ilateral [facility] M21.061 Valgus deformity, not elsewhere classified, right knee Assessments Date Code Description Provider 07/04/2019 M99.53 Spinal stenosis of lumbar region RIKY Lynch 07/04/2019 M47.896 Lumbar spondylosis RIKY Lnych 05/26/2019 M48.07 Spinal stenosis, lumbosacral region Marly Mcgowan M.D. 05/13/2019 E11.9 Type 2 diabetes mellitus without Lisbeth Odell MD complications 05/13/2019 I10 Essential (primary) hypertension [...] cognitive impairment, so stated Adelina Marker, RPA-C Plan of Treatment Future Appointment(s):11/17/2019 1:00 pm - Marly Mcgowan M.D. at [facility] Medicine - Ccmob07/04/2019 - Josseline Shetty, PAM99.53 Intvrt disc stenosis of neural canal of lumbar ppwbinP41.896 Other spondylosis, lumbar regionFollow up:Follow with Dr. Ferrara for surgical consult Functional Status Description No Information Available Mental Status Description No Information Available Referrals Refer to Dr Reason for Referral Status Appt Date Mauricio Beckham MD elderly patient in severe pain, not responding Sent 03/2019 to pain medications, cannot tolerate PT [address] [place] [address] [phone] Nomi Ferrara MD Sent 07/04/[address] [facility], [place] [address] [phone] Barbie Montgomery MD right knee pain not responding to PT Sent 01/23/[address] [facility] [place] [address] [phone]
[2019-07-05] MEDS ORDERED: LORazepam TAB(*) 1 MG PO ONE (16:20)
[2019-07-05] MEDS ORDERED: Ketorolac INJ* 30 MG/ML 1 ML VIAL IM ONE (16:20)
[2019-07-05 17:58] VITALS: BP 149/82
== END 2019-07-05 17:54 | disposition home or self-care (01) ==
LOC: ED 14:36
DX: M48.061 Spinal stenosis, lumbar region without neurogenic claudication (principal); M54.5 Low back pain; E11.9 Type 2 diabetes mellitus without complications; I25.10 Atherosclerotic heart disease of native coronary artery without angina pectoris; I10 Essential (primary) hypertension; E78.00 Pure hypercholesterolemia, unspecified; K21.9 Gastro-esophageal reflux disease without esophagitis; N28.9 Disorder of kidney and ureter, unspecified; Z85.828 Personal history of other malignant neoplasm of skin
CPT/HCPCS: 96372; 99282; A9270-GY; J1885; J2930

== ENCOUNTER 2019-07-14 10:03 | Observation (INO) | payer MEDICARE, OTHER ==
--- OUTSIDE RECORDS SUMMARY | 2019-07-14 10:27 | XMS REPORT | Continuity of Care Document ---
:1935 External Reference #:[id number] Author Name Nomi Ferrara MD (transmitted by agent of provider Juli Falcon ) Address [address] [place] [address] Care Team Providers Name Role Phone Elier Eller MD - Orthopaedic Care Team Information Income Tax Return Preparer [phone] Surgery Morales Vargas MD - Urology Care Team Information Income Tax Return Preparer [phone] Lenny Herrera MD - Endocrinology, Care Team Information Income Tax Return Preparer Diabetes & Metabolism Diana Randall MD - Pulmonary Care Team Information Income Tax Return Preparer [phone] Disease Monica Bynum MD - Hematology & Care Team Information Income Tax Return Preparer Oncology Dennys Harrington MD - Ophthalmology Care Team Information Income Tax Return Preparer [phone] Lisbeth Odell M.D. 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 Disturbance [...] Use Denies Drug Use Smoking Status Reviewed: 07/09/19 Patient has never smoked Exercise Type/Frequency Exercises sporadically Walks occasionally Allergies, Adverse Reactions, Alerts Active Allergies Reaction Severity Comments Date Demerol nausea and vomiting 04/09/2008 Environmental dogs, cats, dust, dustmites, grass 02/10/2010 Detrol chest tightness 03/31/2015 Medications Active Medications SIG Qnty Indications Ordering Date Provider Acetaminophen-Codeine #4 one by mouth every 28tabs Lisbeth Odell, 6 hours as needed MD Thorne 300-60mg Tablets for pain Lantus Solostar 34 units SC at 3ml Lisbeth Odell, 100Unit/ML bedtime Dx E11.9 MD Thorne Solution Pen-Inject Ov 719 Tramadol HCL 1 by mouth every 60tabs [...] milliliters 2units Quintin Medina 50mcg/0.5ML intramuscular now Fadumo Graves Suspension Rec and 2-3 months M.D.,FACP later repeat BD Uf Short Pen Needle Use Up To Four 300units Quintin Medina [id number] Times Daily And as Ely, 9 Needed M.D.,FACP Lantus 34 units subq 20ml Lisbeth Odell, 100Unit/ML Solution every night at MD Fernando bedtime DX E11.9 Ov7-2-19 Advair HFA 2 puff twice a day 36gm R06.02 Lisbeth Cass, 115-21mcg/Act MD Fernando Aerosol Metformin HCL 1 by mouth twice a 180tabs Lisbeth Odell, 500mg Tablets day MD Fernando Atenolol 1 by mouth every 90tabs Lisbeth Odell, 25mg Tablets day MD Fernando Ultra-Thin II Pen test up to four 300units Quintin Medina [place]/Short/31GX5/16" times daily and as Ely, 7 31G X needed M.D.,FACP 8 mm Misc Vitamin D 1 tab po qd 90tabs Quintin Medina (Cholecalciferol) Ely, 7 1000Unit M.D.,FACP Tablets Walker Auto Glides/5 wheeled walker 1units Quintin Medina Adjustment Holes/-10/15" with seat and [place], 6 brakes M.D.,FACP 1-10/15" Misc Nitrostat one sl q5min up to 25tabs Qutaybeh S. 0.4mg Tablets Sub 3 doses as needed Nae Gonzales.DKedar Aspirin 1 by mouth every I25.10 Quintin Medina 81mg Tablets day [place], 5 M.D.,FACP Isosorbide Mononitrate 1 by mouth [...] 1 Hydrochlorothiazide take 1/2 tablet by 45tabs Lisbethmartine Odell, 25mg mouth every day MD 0 Tablets Amlodipine take one capsule 90caps I10 Lisbeth Odell, Besylate/Benazepril by mouth every day 8 Hydrochloride 5-20mg Capsules Multi For Her 1 by mouth every 90caps Unknown Capsules day 0 History Medications Acetaminophen-Codeine #4 one by mouth every 28tabs Lisbeth Odell, 2018 - 300-60mg 6 hours as needed MD Unknown Tablets for pain Prednisone 4 tabs every day 28tabs J45.9 Lisbeth Odell, 02/17/2019 - 10mg Tablets for 4 days, then MD 03/10/2019 reduce by 1 tab every 2 days until finished Trulicity inject 1 dose 2ml Lisbethmartine Odell, 02/12/2019 - 1.5mg/0.5ML Solution subcutaneously once MD 03/04/2019 Pen-Inject weekly Medications Administered in Office Medication SIG Qnty Indications Ordering Provider Date Triamcinolone (Kenalog) Barbie Montgomery MD 01/23/2019 Injection Depomedrol 80MG Elier Eller M.D. 07/30/2012 Injection Immunizations CPT Code Status Date Vaccine Reaction Lot # 51437 Given 07/12/2018 Influenza Virus Vaccine, [id number] Quadrivalent, Split, Preservative Free 62605 Given 11/05/2017 Influenza Virus Vaccine, [id number] Quadrivalent, Split, Preservative Free 93982 Given 10/08/2016 Influ Virus Vaccine, Quadrivalent, Split Virus, [place] [address] Given 09/23/2015 Influenza Virus Vaccine, no r eaction noted [id number] Quadrivalent, Split, Preservative Free 46980 Given 03/31/2015 Pneumococcal Conjugate Vaccine [id number] Valent For Intramuscular Use 99086 Given 07/13/2014 Influenza Virus Vaccine, [id number] Quadrivalent, Split, Preservative Free 46987 Given 08/08/2013 Flu Vaccine Split Virus [id number] Preservative Free For Indiv 3Yr Older Q2038 Given 07/09/2012 Fluzone Vaccine [id number] 98001 Given 03/28/2012 Zoster (Zostavax) [id number] 74550 Given 02/27/2012 Tdap - [id number] Tetanus/Diptheria/Acellular Pertussis Q2038 Given 09/22/2011 Fluzone Vaccine [id number] 05382 Given 11/25/2009 Influenza Virus 3Yrs & Over [id number] 60390 Given 11/19/2009 Influenza Virus Vaccine, Pandemic Formulation 29368 Given 07/17/2003 Pneumonia Vaccine Vital Signs Date Vital Result Comment 07/09/2019 10:00am Height 62 inches 5'2" Weight 182.00 lb BP Systolic 136 mmHg BP Diastolic 80 mmHg Pain Level 10 BMI (Body Mass Index) 33.3 kg/m2 07/04/2019 3:03pm Height 62 inches 5'2" Weight 182.00 lb BP Systolic 120 mmHg BP Diastolic 64 mmHg Pain Level 10 BMI (Body Mass Index) 33.3 kg/m2 Results Test Date Facility Test Result H/L Range Note Laboratory test 05/13/2019 [facility] In House Hemoglobin A1c 7.4 High 5-7 finding Order 02/17/2019 [facility] In-House Nebulizer <pending> Treatment Basic Metabolic 02/12/2019 [facility] Sodium 139 mmol/L Normal 135-[address] [place] [address] [phone] Potassium 4.3 mmol/L Normal 3.5-5.0 Chloride 102 mmol/L Normal 101-111 Co2 Carbon Dioxide 27 mmol/L Normal 22-32 Anion Gap 10 mmol/L Normal 2-11 Glucose 99 mg/dL Normal 70-100 Blood Urea Nitrogen 32 mg/dL High 6-24 Creatinine 1.06 mg/dL High 0.51-0.95 BUN/Creatinine Ratio 30.2 High 8-20 Calcium 10.5 mg/dL High 8.6-10.3 Egfr Non- 49.4 >60 Egfr 59.8 >60 1 Urinalysis Profile 02/12/2019 [facility] Urine Color Yellow [address] [place] [address] [phone] Urine Appearance Clear Urine Specific [place] 1.017 Normal 1.010-1.030 Urine pH 5.0 Normal 5-9 Urine Urobilinogen Negative Negative Urine Ketones Negative Negative Urine Protein Negative Negative Urine Leukocytes Negative Negative Urine Blood Negative Negative Urine Nitrite Negative Negative Urine Bilirubin Negative Negative Urine Glucose Negative Negative Laboratory test 02/12/2019 [facility] Magnesium 1.7 mg/dL Low 1.9-2.7 finding [address] [place] [address] [phone] Laboratory test 01/15/2019 [facility] Hemoglobin A1c 7.1 High 5-7 [...] dialysis) Procedures Date Code Description Status 02/17/2019 16083 Inhalation [place] For Acute Airway Obstruction Completed W/Nebulizer/Inhaler 01/23/2019 58308 Inject/Drain Joint/Bursa Major W/O US Completed 10/29/2018 620385031 Diabetic Retinal Eye Exam Completed 09/05/2017 097712062 Diabetic Retinal Eye Exam Completed 07/04/2016 680979284 Diabetic Retinal Eye Exam Completed 04/02/2015 261916456 Diabetic Retinal Eye Exam Completed 07/30/2013 375590954 Diabetic Retinal Eye Exam Completed 03/01/2012 661156663 Bone Mineral Density Test Completed Medical Devices Description No Information Available Encounters Type Date Location Provider Dx Diagnosis Office Visit 05/26/2019 Mason Mcgowan, M48.07 Spinal stenosis, 11:50a Medicine - [facility] M.D. lumbosacral region Office Visit 05/13/2019 Mason Odell MD E11.9 Type 2 diabetes 10:40a Medicine - [facility] mellitus without complications I10 Essential (primary) hypertension M54.41 Lumbago with sciatica, right side Office Visit 04/08/2019 3:00p Mason Odell, M54.5 Low back pain Medicine - [facility] Office Visit 03/10/2019 2:40p Mason Odell E11.9 Type 2 diabetes Medicine - mellitus without Ccmob complications J45.909 Unspecified asthma, uncomplicated Office Visit 03/04/2019 Monico Montgomery, M17.11 Unilateral primary 2:15p Orthopedics at osteoarthritis [place] right knee M21.061 Valgus deformity, not elsewhere classified, right knee Office Visit 02/17/2019 2:00p Mason Odell, J45.901 Unspecified asthma Medicine - with (acute) [facility] exacerbation Office Visit 02/12/2019 11:40a [facility] Ailyn Sahu E11.9 Type 2 diabetes Medicine - Marker, RPA-C mellitus without Ccmob complications R25.2 Cramp and spasm Office Visit 01/23/2019 Monico Montgomery M17.11 Unilateral primary 10:30a Orthopedics at osteoarthritis [place] right knee M21.061 Valgus deformity, not elsewhere classified, right knee Assessments Date Code Description Provider 07/09/2019 M99.53 Spinal stenosis of lumbar region Nomi Ferrara MD 07/09/2019 M47.896 Lumbar spondylosis Nomi Ferrara MD 07/09/2019 M51.36 Other intervertebral disc degeneration, Nomi Ferrara MD lumbar region 07/04/2019 M99.53 Spinal stenosis of lumbar region RIKY Lynch 07/04/2019 M47.896 Lumbar spondylosis RIKY Lynch 05/26/2019 M48.07 Spinal stenosis, lumbosacral region Marly [...] knee 03/04/2019 M21.061 Valgus deformity, not elsewhere Barbie Montgomery MD classified, right knee 02/17/2019 J45.901 Unspecified asthma with (acute) Lisbeth Odell MD exacerbation 02/12/2019 E11.9 Type 2 diabetes mellitus without Adelina Marker, RPA-C complications 02/12/2019 R25.2 Cramp and spasm Adelina Marker, RPA-C 01/23/2019 M17.11 Unilateral primary osteoarthritis, right Barbie Montgomery MD knee 01/23/2019 M21.061 Valgus deformity, not elsewhere Barbie Montgomery MD classified, right knee 01/15/2019 Z00.00 Encounter for general adult medical Adelina Marker, RPA-C examination without abno 01/15/2019 M25.561 Pain in right knee Adelina Marker, RPA-C 01/15/2019 E11.9 Type 2 diabetes mellitus without Adelina Marker, RPA-C complications 01/15/2019 G31.84 Mild cognitive impairment, so stated Adelina Marker, RPA-C Plan of Treatment Future Appointment(s):11/17/2019 1:00 pm - Marly [facility]gow[facility] M.D[facility] Nomi Ferrara, MDM99.53 Intvrt disc stenosis of neural canal of lumbar wiyquuO90.896 Other spondylosis, lumbar spmhntH06.36 Other intervertebral disc degeneration, lumbar regionFollow up:RV prn. Patient will call if she would like to proceed with surgery Functional Status Description No Information Available Mental Status Description No Information Available Referrals Refer to Dr Reason for Referral Status Appt Date Mauricio Beckham MD elderly patient in severe pain, not responding Sent 03/2019 to pain medications, cannot tolerate PT [address] [place] [address] [phone] Nomi Ferrara MD Sent 07/04/2019 [address] [facility] [place] [address] [phone] Barbie Montgomery MD right knee pain not responding to PT Sent 01/23/2019 [address] [facility] [place] [address] [phone]
--- NOTE | 2019-07-14 10:37 | ED ---
Lower Extremity - HPI Summary HPI Summary: Pt. is an 83 y.o female who presents to the ER for left ankle injury that occurred two days ago. Pt. lives at a senior center facility. Pt. states on Sunday she tripped on her walker and injured left ankle. Pt. declined medical exam at that time. Ankle as continued to be painful so she presents today. Sxs are mild in severity. Walking makes sxs worse. Rest makes sxs better. No other injuries were sustained. - History of Current Complaint Chief Complaint: EDExtremityLower Stated Complaint: LT FOOT / ANKLE INJ PER PT Time Seen by Provider: 07/14/19 10:24 Hx Obtained From: Patient, Family/Senior Analyst Programmer Pain Intensity: 9 - Allergies/Home Medications Allergies/Adverse Reactions: Allergies Allergy/AdvReac Type Severity Reaction Status Date / Time meperidine [From Demerol] Allergy Vomiting Verified 07/11/19 15:12 enviromental Allergy Coughing Uncoded 07/11/19 15:12 Home Medications: Home Medications Hydrochlorothiazide TAB* [Hydrodiuril TAB*] 12.5 mg PO DAILY 07/14/19 [History Confirmed 07/14/19] Nitroglycerin TAB 0.4 MG* 0.4 mg SL Q5M PRN MDD 3 07/14/19 [History Confirmed ] Varicella-Zoster GE/AS01B/PF [Shingrix Vial Kit*] 50 mcg IM ONCE 07/14/19 [ History Confirmed 07/14/19] tiZANidine TAB* [Zanaflex TAB*] 2 mg PO TID 07/14/19 [History Confirmed 07/14/19 ] PMH/Surg Hx/FS Hx/Imm Hx Previously Healthy: Yes Endocrine/Hematology History: Reports: Hx Diabetes - WELL CONTROLLED FINGER STICK BID Cardiovascular History: Reports: Hx Angina, Hx Coronary Artery Disease, Hx Hypercholesterolemia, Hx Hypertension - WELL CONTROLLED, Hx Valvular Heart Disease - "Leaky valve", Other Cardiovascular Problems/Disorders - CATHERIZATION Denies: Hx Pacemaker/ICD Respiratory History: Reports: Hx Asthma GI History: Reports: Hx Gastroesophageal Reflux Disease, Other GI Disorders - ESOPHOGHSCOPY History: Reports: Hx Renal Disease - abnormal gfr, Other Problems/ Disorders - INCONTINENCE Musculoskeletal History: Reports: Hx Arthritis, Hx Scoliosis Denies: Hx Tendonitis - RIGHT SHOULDER, Other Musculoskeletal History Sensory History: Reports: Hx Cataracts, Hx Contacts or Glasses - READING GLASSES Denies: Hx Hearing Aid Opthamlomology History: Reports: Hx Cataracts, Hx Contacts or Glasses - READING GLASSES Neurological History: Reports: Other Neuro Impairments/Disorders - PAIN CLINIC PT Psychiatric History: Reports: Hx Depression - HX OF Denies: Hx Panic Disorder - Cancer History Cancer Type, Location and Year: SKIN CA ON EAR AND UPPER CHEST AND 2011 ON R HAND - Surgical History Surgery Procedure, Year, and Place: RUPTURED DIVERTICULUM WITH COLOSTOMY AND REVERSAL 1979. TOTAL HYSTERECTOMY IN [place]. OPEN NADIA . R ROTATOR CUFF REPAIR 2012 [facility] [place]. TUBAL LIGATION . TONSILS CHILD. LUMBAR DISCECTOMY [place]. BILAT CATARACTS 2010 [facility] [place] Hx Anesthesia Reactions: Yes - NAUSEA WITH DEMEROL Infectious Disease History: No Infectious Disease History: Denies: Traveled Outside the [place] in Last 30 Days - Family History Known Family History: Positive: Cardiac Disease, Hypertension, Non-Contributory - Social History Occupation: Retired Lives: Assisted Living Alcohol Use: None Hx Substance Use: No Substance Use Type: Reports: None Hx Tobacco Use: No Smoking Status (MU): Never Smoked Tobacco Have You Smoked in the Last Year: No Review of Systems Positive: Other - pain left ankle and left hip Positive: Bruising Neurological: Negative Negative: Weakness, Paresthesia, Numbness All Other Systems Reviewed And Are Negative: Yes Physical Exam Triage Information Reviewed: Yes Vital Signs On Initial Exam: Initial Vitals Temp Pulse Resp BP Pulse Ox 96.4 F 77 18 149/70 95 07/14/19 10:19 07/14/19 10:19 07/14/19 10:19 07/14/19 10:19 07/14/19 10:19 Vital Signs Reviewed: Yes Appearance: Positive: Well-Appearing - Pt. sitting up in bed in [facility]. Daughter present. Answers questions appropriately. Skin: Positive: Warm, Dry Head/Face: Positive: Normal Head/Face Inspection Eyes: Positive: Normal, EOMI Neck: Positive: Supple Musculoskeletal: Positive: Other - Marked ecchymosis and edema to left foot and ankle. Good pedal pulse. No breaks in the skin. Pain with palpation of left hip. No knee tenderness. Neurological: Positive: Normal, CN Intact II-III Psychiatric: Positive: Affect/Mood Appropriate Procedures - Sedation Patient Received Moderate/Deep Sedation with Procedure: No - Splinting Left Lower Extremity Hand-Made Type: orthoglass Splint: posterior walking Pre-Proc Neuro Vasc Exam: normal Post-Proc Neuro Vasc Exam: normal Splint Applied by Provider: Benito Skelton Diagn[facility] - Vital Signs Vital Signs Temp Pulse Resp BP Pulse Ox 07/14/19 10:19 96.4 F 77 18 149/70 95 - Laboratory Result Diagrams: 07/14/19 12:28 07/14/19 12:28 Lab Statement: Any lab studies that have been ordered have been reviewed, and results considered in the medical decision making process. Lower Extremity Course/Dx - Course Course Of Treatment: Pt. presenting with isoloated left ankle injury. Pt. requesting tylenol with codeine which she takes at home. Xray shows a bimalleolar fx. Discussed with pt. and daughter. Pt. notes she lives in an apt. by herself and will not be able to manage at home by herself. Daughter notes that she is going on vacation and wesly not be able to help. Pt. and family requesting admission. SW consult ordered. Discussed with Dr. Keene. Discussed with pt. and family admission will likely be [facility] and they express understanding. Case discussed with ortho, Dr. Montgomery, who request CT of ankle. She will see pt. in consult. Splint in place. - Diagnoses Differential Diagnosis/HQI/PQRI: Positive: Fracture (Closed), Sprain, Strain Provider Diagnoses: Bimalleolar fracture Discharge ED - Sign-Out/Discharge Documenting (check all that apply): Patient Departure All imaging exams completed and their final reports reviewed: No - Discharge Plan Condition: Good Disposition: ADMITTED TO [facility] - Billing Disposition and Condition Condition: GOOD Disposition: Admitted to [facility]
[2019-07-14] MEDS ORDERED: Acetaminophen / Codeine* #3 (300 MG/30 MG) TAB PO ONE (10:38)
[2019-07-14 12:40] LABS: ABS Basophils 0.1 10^3/ul (0-0.2); ABS Eosinophils 0.2 10^3/ul (0-0.6); ABS Lymphocytes 1.7 10^3/ul (1.0-4.8); ABS Monocytes 0.8 10^3/ul (0-0.8); ABS Neutrophils 9.1 10^3/ul (1.5-7.7); Eosinophil % 1.7 %; Hematocrit 38 % (35-47); Hemoglobin 12.8 g/dL (12.0-16.0); Lymphocyte % 14.5 %; Mean Corpuscular HGB Conc 34 g/dL (31-36); Mean Corpuscular Hemoglobin 29 pg (27-31); Mean Corpuscular Volume 84 fL (80-97); Mean Platelet Volume 7.1 fL (7.4-10.4); Platelet Count 157 10^3/uL (150-450); Red Blood Count 4.49 10^6 /uL (3.70-4.87); Red Cell Distribution Width 14 % (10-15)
[2019-07-14 12:57] LABS: Albumin 3.9 g/dL (3.2-5.2); Albumin/Globulin Ratio 1.5 (1-3); BUN/Creatinine Ratio 35.2 (8-20); Calcium 9.2 mg/dL (8.6-10.3); EGFR African American 71.3 (>60); EGFR Non-African American 58.9 (>60); Globulin 2.6 g/dL (2-4); Total Bilirubin 0.6 mg/dL (0.2-1.0); Total Protein 6.5 g/dL (6.4-8.9)
[2019-07-14] MEDS ORDERED: Ondansetron INJ* 2 MG/ML VIAL IV PRN (13:59)
[2019-07-14] MEDS ORDERED: Acetaminophen TAB* 325 MG PO PRN (13:59)
[2019-07-14] MEDS ORDERED: NF:Dulaglutide (NF) 0.75 MG/0.5 ML SYRINGE SUBCUT SCH (14:00)
[2019-07-14] MEDS ORDERED: Dextrose 50% VIAL 50 ml IV PUSH PRN (14:05)
--- NOTE | 2019-07-14 15:41 | HP ---
AMENDED REPORT NOW INCLUDES DESIGNATED COSIGNER - ESIGNED BEFORE ADJUSTMENTS ADDENDUM NOW INCLUDED ON THIS REPORT ADMISSION HISTORY AND PHYSICAL: DATE OF ADMISSION: 07/14/19 PRIMARY CARE PROVIDER: Dr. Quintin Graves. PROVIDER: Sammie Monterroso NP ATTENDING PHYSICIAN: Dr. Dickens * (DICTATED BY SAMMIE MONTERROSO NP) OTHER PROVIDER: Includes Dr. Montgomery. CHIEF COMPLAINT: Left ankle pain, status post fall. HISTORY OF PRESENT ILLNESS: This is an 83-year-old female with a past medical history that is significant for lumbar stenosis, diabetes type 2, and hypertension, who had fallen on Sunday. At that time, she stated she was barefoot, was transferring from walker to her chair and got tangled in the walker and she fell onto her back. Denied losing consciousness. Denied any pre fall, vision narrowing, dizziness, nausea, vomiting, chest pain, shortness of breath. At that time, EMS came to evaluate her and she opted not to come to the emergency room since at that time the pain was not horrible and visually could not see any difference, but the patient opted to come to the emergency room today after increased pain and swelling to her left lower extremity. She lives alone. Family asked for her to be admitted due to the fact that she lives alone and daughter will be leaving for a week-long trip this coming week and will be unable to care for her and has nobody else that will be able to care for her as well. Hospitalists were asked to evaluate the patient for admission. Dr. Montgomery has been consulted and will see the patient later today. 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 PAST SURGICAL HISTORY: Includes colostomy with reversal due to ruptured diverticulum, rotator cuff repair, diskectomy, cholecystectomy, hysterectomy, and tubal ligation. MEDICATIONS: Home medications include: 1. Multivitamin with calcium, iron, and minerals 1 tab p.o. q.a.m. 2. Amlodipine besylate/benazepril 5/20 mg p.o. q.a.m. 3. Acetaminophen 325 mg p.o. at bedtime. 4. Hydrochlorothiazide 12.5 mg p.o. daily. 5. Sertraline 50 mg q. day. 6. Omeprazole 20 mg p.o. daily. 7. Atorvastatin 10 mg at bedtime. 8. Nitroglycerin 0.4 mg sublingually q.5 minutes p.r.n. with max daily dose of 3. 9. Isosorbide mononitrate 60 mg p.o. q.a.m. 10. Aspirin 81 mg at bedtime. 11. Metformin 500 mg p.o. b.i.d. 12. Cholecalciferol 1000 units p.o. q.a.m. 13. Atenolol 25 mg q.p.m. 14. Fluticasone/salmeterol 100/50 two puffs inhalation b.i.d. 15. Trulicity 0.75 mg subcu q. Sunday. 16. Insulin Lantus 34 units subcu at bedtime. 17. Tizanidine 2 mg p.o. t.i.d. ALLERGIES: To MEPERIDINE and DETROL. FAMILY HISTORY: Significant for diabetes in her mother and grandparents. SOCIAL HISTORY: Denies any tobacco, alcohol, or recreational substance use. Is retired, had been a retail cashier; is , has 6 children. REVIEW OF SYSTEMS: A 14-point system review was performed. It was positive for incontinence; numbness to the left lower extremity post fall, but none current; and bruising to bilateral knees after falling in Dr. Ferrara' office when trying to get up to his exam table this past week; generalized weakness. Negative for chest pain, shortness of breath, lightheadedness, dizziness, or unsteadiness. PHYSICAL EXAMINATION CONSTITUTIONAL: This is a well-developed, old female seen lying in bed. No acute distress noted. She is pale in appearance. VITAL SIGNS: Temperature 96.4 Fahrenheit, 77 pulse, 18 resp, 95% oxygen on room air, 149/70 blood pressure. HEENT: Eyes: Conjunctivae pink and moist. Pupils are equal, round, and reactive to light. EOMs intact. ENT: Oropharynx clear. Mucous membranes moist. LYMPHATIC: No cervical lymphadenopathy noted. RESPIRATORY: Lung sounds diminished in bases, clear throughout bilaterally on room air. No accessory muscle use. CARDIAC: S1, S2. Noted about grade 1 systolic murmur. Otherwise, no rubs or gallops noted. No lower extremity edema. Unable to palpate left pedal pulse. No left popliteal pulse present. ABDOMEN: Soft, nontender, nondistended with positive bowel sounds x4. MUSCULOSKELETAL: No clubbing or cyanosis noted. Cap refill within 3 seconds to the left lower extremity. Able to move all toes. NEURO: Moves all extremities. Sensation intact to light touch to lower extremities. PSYCH: Alert and oriented x4. No anxiety or depression noted. SKIN: Noted bruising in various stages of healing to bilateral knees and to right mansfield. DIAGNOSTIC STUDIES/LAB DATA: Pertinent labs: White blood cell count 12.0, MPV 7.0, absolute neutrophils 9.1. BUN 32, BUN/creatinine ratio 35.2, GFR of 71.3, glucose 190. Diagnostics: Left ankle and foot x-ray showed fracture of the lateral and medial malleolus, ankle mortise grossly intact, marked soft tissue swelling. Left hip x-ray showed osteitis pubis and no evidence of fracture. Lower extremity CT scan showed transverse slightly displaced intraarticular fracture of the medial malleolus and oblique slightly displaced intraarticular fracture of the lateral medial malleolus. ASSESSMENT AND PLAN: My impression is that this is an 83-year-old female with a past medical history significant for lumbar herniated disk and spinal stenosis, being admitted today for left ankle fracture with possible surgery on with Dr. Connors. 1. Left ankle fracture. PT/OT consult put in. Dr. Montgomery consulted and will make a determination about surgery. Up with assist, nonweightbearing to the left lower extremity. 2. Coronary artery disease. We are going to hold the baby aspirin due to surgery. Continue isosorbide mononitrate, atenolol, and continue amlodipine besylate and benazepril. 3. Hypertension. Again, continue amlodipine and benazepril and atenolol. 4. Gastroesophageal reflux disease. Continue omeprazole. 5. Depression. Continue sertraline. 6. Diabetes type 2. Fingersticks a.c. with sliding scale lispro. Continue Trulicity and Lantus. 7. Asthma. Continue Advair and albuterol as needed. 8. Chronic back pain. Continue tizanidine. 9. DVT prophylaxis: Subcu heparin and SCDs. 10. Code status is full code. DISPOSITION: Admit OBV to 4S. CONDITION: Stable. TIME SPENT: Time spent with the patient 60 minutes, greater than half of that spent face to face. Plan of care was discussed with my attending and they agree. SAMMIE MONTERROSO NP DATE OF ADMISSION: 07/14/19 ADDENDUM: This case was reviewed and discussed with Sammie Monterroso, nurse practitioner. Ms. Varela is an 83-year-old female with a past medical history of type 2 diabetes, hypertension, who had a mechanical fall over the weekend at home. She was brought into the emergency room with complaints of pain to her left ankle. In emergency room, the patient had an ankle x-ray that showed a fracture of the lateral and medial malleolus. This could be managed as outpatient with orthopedic followup, but unfortunately the patient's daughter would not be available to help care for her and the patient cannot stay in nonweightbearing status, for which she is being admitted as alf care and the plan is for placement in a senior living facility. We are still awaiting orthopedist consultation as it is not clear if the patient will need surgical management or not. I am in agreement with the current management. ELAINE Dickens MD [id number]/CPS #: [id number]/CPS #: [id number] MADIHA
[2019-07-14] MEDS: Heparin VIAL(*) 5000 UNITS/ML VIAL (FIVE THOUSAND) SUBCUT SCH ×2 (17:15→20:49)
[2019-07-14] MEDS: Insulin LISPRO* 1 UNITS UNIT SUBCUT SCH (17:15)
[2019-07-14] MEDS: Atenolol TAB* 25 MG PO SCH (17:16)
[2019-07-14] MEDS: tiZANidine TAB* 2 MG PO SCH ×2 (17:16→20:48)
[2019-07-14] MEDS: Mometasone/Formoter 200/5 MDI INH SCH (19:48)
--- NOTE | 2019-07-14 19:57 | CONS ---
CONSULTATION NOTE: DATE OF CONSULT: 07/14/19 ATTENDING PHYSICIAN: Dr. Barbie Montgomery. CHIEF COMPLAINT: Left ankle pain, status post fall. HISTORY OF PRESENT ILLNESS: Briefly, Lou Varela is an 83-year-old female who has actually been seen by me in the office for her knee osteoarthritis, who presents for a fall on Sunday. She was walking barefoot between her walker and a chair and got twisted and tangled. She called her daughter who lives locally, who then activated the alert system. EMS came to evaluate her and she refused to come to the ER. She has since had difficulty weightbearing on the ankle. She has a lot of swelling and pain. She does endorse some numbness and tingling at the fall, but not presently. She does have a history of lumbar stenosis with a herniated disk that is nonoperative, diabetes, hypertension, and coronary artery disease. She has been putting some weight on it with some discomfort. 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 PAST SURGICAL HISTORY: Colostomy with reversal due to ruptured diverticulum, rotator cuff repair, diskectomy, cholecystectomy, hysterectomy, and tubal ligation. MEDICATIONS AT HOME: Include: 1. Multivitamin with calcium. 2. Amlodipine. 3. Acetaminophen. 4. Hydrochlorothiazide. 5. Sertraline. 6. Omeprazole. 7. Atorvastatin. 8. Nitroglycerin. 9. Isosorbide mononitrate. 10. Aspirin. 11. Metformin. 12. Cholecalciferol. 13. Atenolol. 14. Fluticasone. 15. Trulicity. 16. Insulin 34. 17. Tizanidine 2 mg. ALLERGIES: MEPERIDINE and DETROL. FAMILY HISTORY: Diabetes in her mother and grandparents. SOCIAL HISTORY: She lives alone. She is retired from retail work. She is a community ambulator. She has 6 children, some of which are locally based. She denies tobacco and alcohol. REVIEW OF SYSTEMS: A 14-point review of systems reviewed with the patient and significant for incontinence, numbness in the left lower extremity, bruising on her knees, knee pain. Negative for chest pain, shortness of breath. She also complains of ankle pain, inability to weight bear comfortably, generalized weakness. Otherwise, remainder of the systems is negative. PHYSICAL EXAM: She is in no acute distress. She is well developed and well nourished. She has a pleasant mood, normal affect. She is ambulating with assistance to get to the bathroom. Temperature 98.5, pulse 87, respiratory rate 18, O2 saturation 100% on room air, blood pressure 114/76. EOMI. Chest is clear to auscultation. Heart: Regular rate and rhythm. Abdomen: Soft, nontender. Examination of the left leg demonstrates a well-padded splint. She is able to flex and extend her toes. She has brisk cap refill. She is sensate to light touch briskly distally. DIAGNOSTIC STUDIES/LAB DATA: X-ray and CT scan demonstrate a bimalleolar ankle fracture. It does not appear to have significant displacement, although the medial malleolus piece is somewhat displaced. These are nonweightbearing films. White count of 12.0, hematocrit of 38, platelet count 157. Sodium is 138, potassium 4, chloride 103, carbon dioxide 28, BUN is 7, creatinine is 0.91, glucose 190, calcium 9.2. We do not have a recent A1c. ASSESSMENT AND PLAN: Unfortunately, she has a bimalleolar ankle fracture. She has multiple comorbidities. She does live alone. She is unable to weight bear and take care of herself at home. At this point, I do think she needs to be admitted. I will discuss with my colleagues to see if she is a candidate for nonoperative treatment, but for now, we will keep her nonweightbearing, toes elevated. We will monitor her swelling and potentially plan for surgery this week if she needs it. The risks and benefits were reviewed briefly with the family and I will continue to monitor in-house. [id number]/[facility] #: [id number] MADIHA
--- NOTE | 2019-07-14 20:13 | HP ---
HISTORY AND PHYSICAL: DATE OF ADMISSION: 07/14/19 ADDENDUM: This case was reviewed and discussed with Sammie Monterroso, nurse practitioner. Ms. Varela is an 83-year-old female with a past medical history of type 2 diabetes, hypertension, who had a mechanical fall over the weekend at home. She was brought into the emergency room with complaints of pain to her left ankle. In emergency room, the patient had an ankle x-ray that showed a fracture of the lateral and medial malleolus. This could be managed as outpatient with orthopedic followup, but unfortunately the patient's daughter would not be available to help care for her and the patient cannot stay in nonweightbearing status, for which she is being admitted as snf care and the plan is for placement in a residential facility. We are still awaiting orthopedist consultation as it is not clear if the patient will need surgical management or not. I am in agreement with the current management. [id number]/[facility]PS #: [id number] MTDD
[2019-07-14] MEDS: Atorvastatin* 10 MG TAB PO SCH (20:48)
[2019-07-14] MEDS: Docusate CAP* 100 MG PO SCH (20:48)
[2019-07-14] MEDS: oxyCODONE/Acetamin 5/325 MG* TAB PO PRN (20:48)
[2019-07-14] MEDS: Senna TAB 8.6 mg* TAB PO SCH (20:48)
[2019-07-14] MEDS ORDERED: Insulin GLARGINE(*) 1 UNITS UNIT SUBCUT SCH (21:00)
[2019-07-15] MEDS: oxyCODONE/Acetamin 5/325 MG* TAB PO PRN ×2 (02:56→21:54)
[2019-07-15] MEDS: Heparin VIAL(*) 5000 UNITS/ML VIAL (FIVE THOUSAND) SUBCUT SCH ×3 (06:21→21:54)
[2019-07-15 06:54] LABS: ABS Eosinophils 0.1 10^3/ul (0-0.6); ABS Lymphocytes 1.9 10^3/ul (1.0-4.8); ABS Monocytes 0.6 10^3/ul (0-0.8); ABS Neutrophils 5.9 10^3/ul (1.5-7.7); Eosinophil % 1.6 %; Hematocrit 36 % (35-47); Hemoglobin 12.2 g/dL (12.0-16.0); Lymphocyte % 22.2 %; Mean Corpuscular HGB Conc 34 g/dL (31-36); Mean Corpuscular Hemoglobin 28 pg (27-31); Mean Corpuscular Volume 83 fL (80-97); Mean Platelet Volume 7.1 fL (7.4-10.4); Platelet Count 145 10^3/uL (150-450); Red Blood Count 4.32 10^6 /uL (3.70-4.87); Red Cell Distribution Width 14 % (10-15); White Blood Count 8.6 10^3/uL (3.5-10.8)
[2019-07-15 07:00] LABS: Calcium 9.4 mg/dL (8.6-10.3); Potassium 4.2 mmol/L (3.5-5.0)
[2019-07-15 07:06] LABS: EGFR African American 63.9 (>60); EGFR Non-African American 52.8 (>60)
[2019-07-15] MEDS: Insulin LISPRO* 1 UNITS UNIT SUBCUT SCH ×3 (07:26→17:07)
[2019-07-15] MEDS: Hydrochlorothiazide TAB* 25 MG PO SCH (07:55)
[2019-07-15] MEDS: Cholecalciferol TAB* 1000 UNITS PO SCH (07:55)
[2019-07-15] MEDS: tiZANidine TAB* 2 MG PO SCH ×3 (07:56→21:55)
[2019-07-15] MEDS: Sertraline* 50 MG TAB PO SCH (07:56)
[2019-07-15] MEDS: Isosorbide Mononitrate ER TAB* 60 MG PO SCH (07:57)
[2019-07-15] MEDS: Lisinopril TAB* 10 MG PO SCH (07:57)
[2019-07-15] MEDS: amLODIPine TAB* 5 MG PO SCH (07:57)
[2019-07-15] MEDS: Pantoprazole TAB * 40 MG TAB PO SCH (07:58)
[2019-07-15] MEDS: Mometasone/Formoter 200/5 MDI INH SCH ×2 (08:00→19:37)
[2019-07-15] MEDS: Senna TAB 8.6 mg* TAB PO SCH ×2 (08:00→21:54)
[2019-07-15] MEDS: Docusate CAP* 100 MG PO SCH ×2 (08:00→21:54)
[2019-07-15 10:07] LABS: Urine Appearance Turbid; Urine Bacteria 1+ (Absent); Urine Bilirubin Negative (Negative); Urine Blood 1+ (Negative); Urine Color Yellow; Urine Glucose Negative (Negative); Urine Ketones Negative (Negative); Urine Nitrite Negative (Negative); Urine Protein 1+(30 mg/dL) (Negative); Urine Red Blood Cell 3+(>10/hpf) (Absent); Urine Squamous Epithelial Cell Present (Absent); Urine Urobilinogen Negative (Negative); Urine White Blood Cell 3+(>20/hpf) (Absent)
--- NOTE | 2019-07-15 14:28 | PN ---
Subjective Date of Service: 07/15/19 Interval History: Patient feels her pain is well controlled. She understands that orthopedics will not be operating and cast will be placed tomorrow. Has no complaints. No acute events overnight. Denies chest pain, difficulty breathing, fever/chills, abd pain. Patient tells me that she has been told she has a heart murmur in the past Objective Active Medications: Acetaminophen (Tylenol Tab*) 650 mg PO Q4H PRN PRN Reason: MILD PAIN or TEMP > 100.4 Amlodipine Besylate (Norvasc Tab*) 5 mg PO DAILY [facility] Last Admin: 07/15/19 07:57 Dose: 5 mg Atenolol (Tenormin Tab*) 25 mg PO QPM [facility] Last Admin: 07/14/19 17:16 Dose: 25 mg Atorvastatin Calcium (Lipitor*) 10 mg PO BEDTIME [facility] Last Admin: 07/14/19 20:48 Dose: 10 mg Cholecalciferol (Vitamin D Tab*) 1,000 units PO QAM [facility] Last Admin: 07/15/19 07:55 Dose: 1,000 units Dextrose (Dextrose 50% Vial 50 Ml*) 25 ml IV PUSH .FOR FS < 60 - SS PRN PRN Reason: FS < 60 Docusate Sodium (Colace Cap*) 100 mg PO BID [facility] Last Admin: 07/15/19 08:00 Dose: Not Given Dulaglutide (Trulicity (Nf)) 0.75 mg SUBCUT Q7D [facility] Last Admin: 07/14/19 17:10 Dose: 0.75 mg Heparin Sodium (Porcine) (Heparin Vial(*)) 5,000 units SUBCUT Q8HR [facility] Last Admin: 07/15/19 13:00 Dose: 5,000 units Hydrochlorothiazide (Hydrodiuril Tab*) 12.5 mg PO DAILY [facility] Last Admin: 07/15/19 07:55 Dose: 12.5 mg Insulin Glargine (Lantus(*)) 34 units SUBCUT BEDTIME [facility] Last Admin: 07/14/19 20:48 Dose: 34 unit Insulin Human Lispro (Humalog*) 0 units SUBCUT AC [facility]; Protocol Last Admin: 07/15/19 13:00 Dose: 3 units Isosorbide Mononitrate (Imdur Er Tab*) 60 mg PO QAM [facility] Last Admin: 07/15/19 07:57 Dose: 60 mg Lisinopril (Prinivil Tab*) 20 mg PO DAILY [facility] Last Admin: 07/15/19 07:57 Dose: 20 mg Mometasone Furoate/Formoterol Fumar (Dulera 200/5 Mdi*) 2 puff INH BID [facility] Last Admin: 07/15/19 08:00 Dose: 2 puff Ondansetron HCl (Zofran Inj*) 4 mg IV Q4H PRN PRN Reason: NAUSEA/VOMITING Oxycodone/Acetaminophen (Percocet 5/325 Tab*) 1 tab PO Q4H PRN PRN Reason: PAIN - MODERATE Last Admin: 07/14/19 20:48 Dose: 1 tab Oxycodone/Acetaminophen (Percocet 5/325 Tab*) 2 tab PO Q4H PRN PRN Reason: PAIN - SEVERE Last Admin: 07/15/19 02:56 Dose: 2 tab Pantoprazole Sodium (Protonix Tab*) 40 mg PO DAILY [facility] Last Admin: 07/15/19 07:58 Dose: 40 mg Senna (Senokot 8.6 Mg Tab*) 1 tab PO BID [facility] Last Admin: 07/15/19 08:00 Dose: Not Given Sertraline HCl (Zoloft*) 50 mg PO [facility] Last Admin: 07/15/19 07:56 Dose: 50 mg Tizanidine HCl (Zanaflex Tab*) 2 mg PO TID [facility] Last Admin: 07/15/19 13:01 Dose: 2 mg Vital Signs - 8 hr 07/15/19 07/15/19 07/15/19 06:44 08:00 08:03 Temperature 97.2 F Pulse Rate 62 65 Respiratory 17 16 16 Rate Blood Pressure 161/74 (mmHg) O2 Sat by Pulse 97 96 Oximetry 07/15/19 11:15 Temperature 97.0 F Pulse Rate 62 Respiratory 18 Rate Blood Pressure 147/62 (mmHg) O2 Sat by Pulse 97 Oximetry Oxygen Devices in Use Now: None Appearance: Elderly white female, laying in bed, appearing in NAD Eyes: No Scleral Icterus, PERRLA Ears/Nose/Mouth/Throat: Mucous Membranes Moist Neck: NL Appearance and Movements; NL JVP Respiratory: Symmetrical Chest Expansion and Respiratory Effort, Clear to Auscultation Cardiovascular: NL Sounds; No Murmurs; No JVD, - - diastolic murmur Abdominal: - - abd soft, nontender, nondistended Extremities: No Edema, No Clubbing, Cyanosis, - - flor wraps to LLE Skin: No Rash or Ulcers Neurological: Alert and Oriented x 3, NL Muscle Strength and Tone Result Diagrams: 07/15/19 06:28 07/15/19 06:28 Assess/Plan/Problems-Billing Assessment: 83 yo white female with PMHx DMT2, HTN, lumbar stenosis, CAD, and colostomy in place reports 3 days after a fall and found to have left ankle fracture. - Patient Problems (1) Ankle fracture Current Visit: Yes Status: Acute Code(s): S82.899A - OTH FRACTURE OF UNSP LOWER LEG, INIT FOR CLOS FX SNOMED Code(s): 43582420 Comment: -orthopedics proceeding with non-operative management. Cast will be placed tomorrow -patient unable to take care of herself at home and patient's daughter is going out of town -pain control is good, will continue -continue bowel regimen (2) Diabetes mellitus type 2 in obese Current Visit: Yes Status: Acute Code(s): E11.69 - TYPE 2 DIABETES MELLITUS WITH OTHER SPECIFIED COMPLICATION; E66.9 - OBESITY, UNSPECIFIED SNOMED Code(s) : 84868842 Comment: -continue SS lispro -decreasing insulin glargine to 30 units as patient takes 34 at home (3) Hypertension Current Visit: Yes Status: Acute Code(s): I10 - ESSENTIAL (PRIMARY) HYPERTENSION SNOMED Code(s): 77453952 Comment: -overall normotensive -SBP to 161 once, will continue to monitor -continue atenolol, lisinopril, amlodipine, imdur (4) Coronary artery disease Current Visit: Yes Status: Acute Code(s): I25.10 - ATHSCL HEART DISEASE OF [place] CORONARY ARTERY W/O ANG PCTRS SNOMED Code(s): 33733910 Comment: -continue atenolol, lisinopril, amlodipine, imdur (5) Diastolic murmur Current Visit: Yes Status: Acute Code(s): I38 - ENDOCARDITIS, VALVE UNSPECIFIED SNOMED Code(s): 35637631 Comment: -patient tells me this is not new but I do not see it documented on prior PCP office visits -called PCP and asked to fax echo, however it was never received, will review tomorrow (6) Full code status Current Visit: Yes Status: Acute Code(s): Z78.9 - OTHER SPECIFIED HEALTH STATUS SNOMED Code(s): 284767546 (7) DVT prophylaxis Current Visit: Yes Status: Acute Code(s): Z29.9 - ENCOUNTER FOR PROPHYLACTIC MEASURES, UNSPECIFIED SNOMED Code(s): 127399060 Comment: -heparin subq
[2019-07-15] MEDS: Atenolol TAB* 25 MG PO SCH (17:07)
--- NOTE | 2019-07-15 17:41 | PN ---
Progress Note - Progress Note Date of Service: 07/15/19 SOAP: Subjective: [] Objective: [] Assessment: [] Plan: []
[2019-07-15] MEDS ORDERED: Aspirin EC TAB* 81 MG TAB.EC PO SCH (21:00)
[2019-07-15] MEDS ORDERED: Insulin GLARGINE(*) 1 UNITS UNIT SUBCUT SCH (21:00)
[2019-07-15] MEDS: Atorvastatin* 10 MG TAB PO SCH (21:54)
[2019-07-16] MEDS: oxyCODONE/Acetamin 5/325 MG* TAB PO PRN ×2 (03:16→10:33)
[2019-07-16] MEDS: Heparin VIAL(*) 5000 UNITS/ML VIAL (FIVE THOUSAND) SUBCUT SCH ×2 (05:26→12:59)
[2019-07-16] MEDS: Mometasone/Formoter 200/5 MDI INH SCH (07:24)
[2019-07-16] MEDS: Insulin LISPRO* 1 UNITS UNIT SUBCUT SCH ×2 (08:37→12:58)
[2019-07-16] MEDS: Sertraline* 50 MG TAB PO SCH (08:46)
[2019-07-16] MEDS: Pantoprazole TAB * 40 MG TAB PO SCH (08:46)
[2019-07-16] MEDS: amLODIPine TAB* 5 MG PO SCH (08:46)
[2019-07-16] MEDS: Isosorbide Mononitrate ER TAB* 60 MG PO SCH (08:46)
[2019-07-16] MEDS: Cholecalciferol TAB* 1000 UNITS PO SCH (08:46)
[2019-07-16] MEDS: Lisinopril TAB* 10 MG PO SCH (08:46)
[2019-07-16] MEDS: tiZANidine TAB* 2 MG PO SCH ×2 (08:46→12:59)
[2019-07-16] MEDS: Hydrochlorothiazide TAB* 25 MG PO SCH (08:47)
[2019-07-16] MEDS: Docusate CAP* 100 MG PO SCH (08:52)
[2019-07-16] MEDS: Senna TAB 8.6 mg* TAB PO SCH (08:52)
[2019-07-16 12:15] VITALS: BP 133/56
--- NOTE | 2019-07-16 12:47 | PN ---
Progress Note - Progress Note Date of Service: 07/16/19 SOAP: Subjective: []Pt seen at bedside, she feels well without CP, SOB, dizziness or nausea. Has some neuropathy of feet but confirms some sensation in all areas of LLE. Objective: []Gen: Appears well, NAD LLE: Splint removed, + ecchymosis of L ankle, minimal edema. Dp2+, sensation intact to light touch throughout. Calf supple and nontender. Well padded short leg cast placed. NVI distally and reported as comfortable after cast placed. Assessment: []Left ankle jeny fracture Plan: []NWB LLE Fu Dr Montgomery in 1 week Patient advised to call ortho with any rubbing or irritation from the cast, she has some neuropathy in her feet and understands to report any discomfort right away. Vital Signs Temp 96.9 F 07/16/19 11:15 Pulse 65 07/16/19 11:15 Resp 16 07/16/19 11:15 BP 133/56 07/16/19 11:15 Pulse Ox 96 07/16/19 11:15 Intake & Output 07/15/19 07/16/19 07/16/19 18:59 06:59 18:59 Intake Total 880 0 480 Output Total 150 Balance 730 0 480 Intake: Oral 880 0 480 Output: Urine 150 Other: Estimated Void Small # Bowel Movements 1 0 1 Estimated Stool Amount Medium Medium # Voids 1 Laboratory Last Values WBC 8.6 10^3/uL (3.5-10.8) 07/15/19 06:28 RBC 4.32 10^6 /uL (3.70-4.87) 07/15/19 06:28 Hgb 12.2 g/dL (12.0-16.0) 07/15/19 06:28 Hct 36 % (35-47) 07/15/19 06:28 MCV 83 fL (80-97) 07/15/19 06:28 MCH 28 pg (27-31) 07/15/19 06:28 MCHC 34 g/dL (31-36) 07/15/19 06:28 RDW 14 % (10-15) 07/15/19 06:28 Plt Count 145 10^3/uL (150-450) L 07/15/19 06:28 MPV 7.1 fL (7.4-10.4) L 07/15/19 06:28 Neut % (Auto) 68.9 % 07/15/19 06:28 Lymph % (Auto) 22.2 % 07/15/19 06:28 [place] % (Auto) 6.7 % 07/15/19 06:28 Eos % (Auto) 1.6 % 07/15/19 06:28 Baso % (Auto) 0.6 % 07/15/19 06:28 Absolute Neuts (auto) 5.9 10^3/ul (1.5-7.7) 07/15/19 06:28 Absolute Lymphs (auto) 1.9 10^3/ul (1.0-4.8) 07/15/19 06:28 Absolute Monos (auto) 0.6 10^3/ul (0-0.8) 07/15/19 06:28 Absolute Eos (auto) 0.1 10^3/ul (0-0.6) 07/15/19 06:28 Absolute Basos (auto) 0.0 10^3/ul (0-0.2) 07/15/19 06:28 Absolute Nucleated RBC 0.0 10^3/ul 07/15/19 06:28 Nucleated RBC % 0.0 07/15/19 06:28 Sodium 138 mmol/L (135-145) 07/15/19 06:28 Potassium 4.2 mmol/L (3.5-5.0) 07/15/19 06:28 Chloride 105 mmol/L (101-111) 07/15/19 06:28 Carbon Dioxide 26 mmol/L (22-32) 07/15/19 06:28 Anion Gap 7 mmol/L (2-11) 07/15/19 06:28 BUN 31 mg/dL (6-24) H 07/15/19 06:28 Creatinine 1.00 mg/dL (0.51-0.95) H 07/15/19 06:28 Est GFR ( Amer) 63.9 (>60) 07/15/19 06:28 Est GFR (Non-Af Amer) 52.8 (>60) 07/15/19 06:28 BUN/Creatinine Ratio 31.0 (8-20) H 07/15/19 06:28 Glucose 109 mg/dL (70-100) H 10/08/19 06:28 POC Glucose (mg/dL) 164 mg/dL (70-100) H 07/16/19 12:00 Calcium 9.4 mg/dL (8.6-10.3) 07/15/19 06:28 Total Bilirubin 0.60 mg/dL (0.2-1.0) 07/14/19 12:28 AST 17 U/L (13-39) 07/14/19 12:28 ALT 22 U/L (7-52) 07/14/19 12:28 Alkaline Phosphatase 98 U/L (34-104) 07/14/19 12:28 Total Protein 6.5 g/dL (6.4-8.9) 07/14/19 12:28 Albumin 3.9 g/dL (3.2-5.2) 07/14/19 12:28 Globulin 2.6 g/dL (2-4) 07/14/19 12:28 Albumin/Globulin Ratio 1.5 (1-3) 07/14/19 12:28 Urine Color Yellow 07/14/19 09:05 Urine Appearance Turbid 07/14/19 09:05 Urine pH 7.0 (5-9) 07/14/19 09:05 Ur Specific [place] 1.010 (1.010-1.030) 07/14/19 09:05 Urine Protein 1+(30 mg/dl) (Negative) A 07/14/19 09:05 Urine Ketones Negative (Negative) 07/14/19 09:05 Urine Blood 1+ (Negative) A 07/14/19 09:05 Urine Nitrate Negative (Negative) 07/14/19 09:05 Urine Bilirubin Negative (Negative) 07/14/19 09:05 Urine Urobilinogen Negative (Negative) 07/14/19 09:05 Ur Leukocyte Esterase 3+ (Negative) A 07/14/19 09:05 Urine WBC (Auto) 3+(>20/hpf) (Absent) A 07/14/19 09:05 Urine RBC (Auto) 3+(>10/hpf) (Absent) A 07/14/19 09:05 Ur Squamous Epith Cells Present (Absent) A 07/14/19 09:05 Urine Bacteria 1+ (Absent) A 07/14/19 09:05 Urine Glucose Negative (Negative) 07/14/19 09:05
--- NOTE | 2019-07-16 13:25 | DS ---
CC: Dr. Lisbeth Odell; Dr. Barbie Montgomery * DATE OF ADMISSION: 07/14/2019. DATE OF DISCHARGE: 07/16/2019. PRIMARY CARE PHYSICIAN: Dr. Lisbeth Odell. ATTENDING PHYSICIAN: Dr. Aline Pereira * (dictated by Manju Martinez NP). PRIMARY DIAGNOSIS: 1. Left bimalleolar ankle fracture. SECONDARY DIAGNOSES: 1. Diabetes mellitus type 2. 2. Hypertension. 3. Coronary artery disease. 4. Diastolic heart murmur. STUDIES WHILE IN THE HOSPITAL: 1. Left ankle x-ray on 07/14/2019, reads as: Fracture of the lateral and medial malleolus. Ankle mortise is grossly intact however. Marked soft tissue swelling is noted. 2. Left foot x-ray on 07/14/2019, reads as: Fracture of the lateral and medial malleolus. The remainder of the foot is unremarkable. 3. Left hip and pelvis x-ray on 07/14/2019, reads as: Osteitis pubis. No fracture of the left hip is noted. 4. Left lower extremity CT on 07/14/2019, reads as: Transverse slightly displaced intra-articular fracture of the medial malleolus. Oblique slightly displaced intra- articular fracture of the lateral malleolus. HISTORY OF PRESENT ILLNESS AND HOSPITAL COURSE: Ms. Varela is an 83-year- old female with a past medical history of diabetes, coronary artery disease, hypertension, and lumbar stenosis who presented to the emergency room on 2018 after a fall. Please see the history and physical by Sammie Monterroso NP for a complete summary of the events leading up to this hospitalization. In short, the patient was walking in her home and somehow tripped over her walker, falling on her back. There was no syncope or loss of consciousness. The patient did call EMS to help her up, but did not come to the emergency room at that time and ultimately presented to the emergency room two days post fall after she had increased pain and swelling in her left lower extremity. In the emergency room, the patient had imaging as noted above and was noted to have a left ankle fracture. For that reason, she was admitted by the Hospitalist Service. The patient was seen in consultation by Dr. Montgomery from Orthopedics. Ultimately , Orthopedics recommended proceeding with nonoperative management. They recommended nonweightbearing status on the left lower extremity and due to this limitation in weightbearing, Physical Therapy determined that she would benefit from a rehab stay. The patient is having a plaster cast placed today by Orthopedics. She continues to report 6/10 left ankle and foot pain. This is at least somewhat relieved by Percocet. She otherwise offers no complaints. On exam, she is alert and oriented times four, she has no focal neurological deficits. Her heart has a regular rate and rhythm. She is noted to have a grade 3/6 diastolic murmur, though the patient reports that she has had a murmur in the past. We have requested records from her primary care provider to review echo, but have not received those results at this time. Lungs are clear to auscultation without rhonchi, wheezes, or rubs. Abdomen is soft and nontender. Movement and sensation is intact to the left toes. The remainder of the foot and ankle are casted. There is no edema to the right lower extremity. Physical assessment is otherwise benign. Ms. Varela was stable for discharge today. Vital signs are as follows: Temperature 96.9, heart rate 65, respiratory rate 16, oxygen saturation 96 percent on room air, blood pressure 133/56. DISCHARGE MEDICATIONS: New medications: 1. Docusate 100 mg p.o. b.i.d. 2. Percocet 5/325 one to two tabs p.o. q.4 hours prn pain. 3. Senna one tab p.o. b.i.d. Continued medications: 1. Aspirin 81 mg p.o. daily. 2. Atenolol 25 mg p.o. daily. 3. Atorvastatin 10 mg p.o. daily. 4. Cholecalciferol 1,000 units p.o. daily. 5. Trulicity 0.75 mg subcu weekly. 6. Advair 100-50 two puffs b.i.d. 7. Hydrochlorothiazide 12.5 mg p.o. daily. 8. Isosorbide Mononitrate 60 mg p.o. daily. 9. Omeprazole 20 mg p.o. daily. 10. Sertraline 50 mg p.o. daily. 11. Tizanidine 2 mg p.o. t.i.d. 12. Glargine 34 units subcu at bedtime. 13. Acetaminophen 325 mg p.o. at bedtime. 14. Amlodipine/Benazepril 5/20 mg one cap p.o. daily. 15. Lispro 20 units subcu at dinner. 16. Lispro 6 units subcu with breakfast and lunch. 17. Metformin 500 mg p.o. b.i.d. 18. Multivitamin one tab p.o. daily. 19. Nitro 0.4 mg sublingual q.5 minutes prn angina. DISCHARGE PLAN: Ms. Varela will be discharged to rehab at [facility]. Medications are noted above. The patient can take Percocet for pain and I have added some bowel medications. Otherwise, her medications remain unchanged. She will need to follow-up with Orthopedics per their recommendations. She should return to the emergency room or nearest hospital for any worsening of symptoms, shortness of breath, lightheadedness, dizziness, chest discomfort, high fevers, chills, night sweats, loss of consciousness or any other worrisome signs or symptoms. ACTIVITY: Nonweightbearing on the left lower extremity per Orthopedics. She will need to follow their recommendations as far as advancing her weightbearing status. DIET: Consistent carb, diabetic. CONDITION ON DISCHARGE: Stable. DISPOSITION: snf facility, [facility]. This is a summarized report of a complex medical history and hospital stay. For further details, please see the entire medical record. TIME SPENT: Approximately 45 minutes were spent on this discharge MANJU MARTINEZ NP [id number]/CPS #: [id number] MADIHA
== END 2019-07-16 16:05 ==
LOC: ED 10:03 → MEDTELE 13:59 → MED 15:12
PROVIDERS: ADMIT Internal Medicine; ATTEND Internal Medicine
DX: S82.842A Displaced bimalleolar fracture of left lower leg, initial encounter for closed fracture (principal); W18.49XA Other slipping, tripping and stumbling without falling, initial encounter; Y92.9 Unspecified place or not applicable; E11.69 Type 2 diabetes mellitus with other specified complication; E66.9 Obesity, unspecified; I10 Essential (primary) hypertension; I25.10 Atherosclerotic heart disease of native coronary artery without angina pectoris; I38 Endocarditis, valve unspecified; Z79.82 Long term (current) use of aspirin; Z79.899 Other long term (current) drug therapy; R26.2 Difficulty in walking, not elsewhere classified; E78.00 Pure hypercholesterolemia, unspecified; K21.9 Gastro-esophageal reflux disease without esophagitis
CPT/HCPCS: 36415; 80048; 80053; 81003; 81015; 85025; 87077; 87086; 87186; 94640; 99284; A9270-GY; G0378; G8978-GP-CK; G8979-GP-CJ; G8987-GO-CK; G8988-GO-CJ; J1644

== ENCOUNTER 2019-10-16 23:33 | Emergency (ER) | payer MEDICARE, OTHER ==
--- NOTE | 2019-10-17 00:28 | ED ---
GI/ HPI - HPI Summary HPI Summary: 84 year old female presents with constipation for the past 2 days. She is on pain medication. States she took some MiraLAX and another pill and has had no relief. She states she has history of this. She denies any pain currently. She states that occasional nausea. Denies any diarrhea. No urinary symptoms. No chest pain shortness of breath. She has a history of high blood pressure and diabetes. has had appendix removed. no history of bowel obstruction. States feels like she has to go but is unable to do so. - History of Current Complaint Chief Complaint: EDAbdPain Time Seen by Provider: 10/16/19 23:55 Stated Complaint: CONSTIPATION PER EMS Pain Intensity: 0 - Additional Pertinent History Primary Care Physician: ABDULAZIZ - Allergy/Home Medications Allergies/Adverse Reactions: Allergies Allergy/AdvReac Type Severity Reaction Status Date / Time meperidine [From Demerol] Allergy Vomiting Verified 10/16/19 23:50 enviromental Allergy Coughing Uncoded 10/16/19 23:50 PMH/Surg Hx/FS Hx/Imm Hx Endocrine/Hematology History: Reports: Hx Diabetes Cardiovascular History: Reports: Hx Angina, Hx Coronary Artery Disease, Hx Hypercholesterolemia, Hx Hypertension, Hx Valvular Heart Disease - "Leaky valve ", Other Cardiovascular Problems/Disorders - CATHERIZATION Denies: Hx Pacemaker/ICD Respiratory History: Reports: Hx Asthma Denies: Hx Chronic Obstructive Pulmonary Disease (COPD) GI History: Reports: Hx Gastroesophageal Reflux Disease, Other GI Disorders - ESOPHOGHSCOPY History: Reports: Hx Renal Disease - abnormal gfr, Other Problems/ Disorders - INCONTINENCE Denies: Hx Dialysis Musculoskeletal History: Reports: Hx Arthritis, Hx Scoliosis Denies: Hx Tendonitis - RIGHT SHOULDER, Other Musculoskeletal History Sensory History: Reports: Hx Cataracts, Hx Contacts or Glasses - READING GLASSES Denies: Hx Hearing Aid Opthamlomology History: Reports: Hx Cataracts, Hx Contacts or Glasses - READING GLASSES Neurological History: Reports: Other Neuro Impairments/Disorders - PAIN CLINIC PT. 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 TOTAL HYSTERECTOMY IN [place]. OPEN NADIA . R ROTATOR CUFF REPAIR 2012 [facility]. TUBAL LIGATION . TONSILS CHILD. LUMBAR DISCECTOMY [place]. BILAT CATARACTS 2010 [facility] Hx Anesthesia Reactions: Yes - NAUSEA WITH DEMEROL Infectious Disease History: No Infectious Disease History: Denies: Traveled Outside the [place] in Last 30 Days - Family History Known Family History: Positive: Cardiac Disease, Hypertension, Non-Contributory - Social History Alcohol Use: None Hx Substance Use: No Substance Use Type: Reports: None Hx Tobacco Use: No Smoking Status (MU): Never Smoked Tobacco Have You Smoked in the Last Year: No Review of Systems Negative: Fever Negative: Chest Pain Negative: Shortness Of Breath Positive: Abdominal Pain, Nausea, Other - constipation. Negative: Vomiting, Diarrhea All Other Systems Reviewed And Are Negative: Yes Physical Exam Triage Information Reviewed: Yes Vital Signs On Initial Exam: Initial Vitals Temp Pulse Resp BP Pulse Ox 97.3 F 75 16 153/72 94 10/16/19 23:45 10/16/19 23:45 10/16/19 23:45 10/16/19 23:45 10/16/19 23:45 Vital Signs Reviewed: Yes Appearance: Positive: Well-Appearing Skin: Positive: Warm, Dry Head/Face: Positive: Normal Head/Face Inspection Eyes: Positive: Normal, Conjunctiva Clear ENT: Positive: Pharynx normal Respiratory/Lung Sounds: Positive: Clear to Auscultation, Breath Sounds Present Cardiovascular: Positive: Normal, RRR Abdomen Description: Positive: Nontender, Soft Bowel Sounds: Positive: Present Musculoskeletal: Positive: Normal Neurological: Positive: Normal Psychiatric: Positive: Normal Procedures - Sedation Patient Received Moderate/Deep Sedation with Procedure: No Diagnostics - Vital Signs Vital Signs Temp Pulse Resp BP Pulse Ox 10/16/19 23:48 72 153/72 92 10/16/19 23:47 74 94 10/16/19 23:45 97.3 F 75 16 153/72 94 - Laboratory Result Diagrams: 10/17/19 00:26 10/17/19 00:26 Lab Statement: Any lab studies that have been ordered have been reviewed, and results considered in the medical decision making process. - Radiology abdomen Radiology Interpretation Completed By: ED Physician Summary of Radiographic Findings: stool present in rectum Re-Evaluation - Re-Evaluation First Eval Re-Evaluation Time: 01:34 Comment: patient has a moderate bowel movement with enema. still nontender abd but patient points to RLQ and LLQ when asked if has any pain. with elevated white count will get a CT GIGU Course/Dx - Course Course Of Treatment: 84 year old female presents with constipation for the past 2 days. She is on pain medication. States she took some MiraLAX and another pill and has had no relief. She states she has history of this. She denies any pain currently. She states that occasional nausea. Denies any diarrhea. No urinary symptoms. No chest pain shortness of breath. She has a history of high blood pressure and diabetes. has had appendix removed. no history of bowel obstruction. States feels like she has to go but is unable to do so. On exam has nontender abdomen. X-ray shows stool present in rectum. wbc 18. crp normal. patient had soap ben edema here and had a bowel movement. on reevualation patient has nontender abdomen but is complaining of lower abdominal pain. patient will be signed out to dr raymond pending CT. - Diagnoses Differential Diagnoses - Female: Bowel Obstruction, Constipation, Colitis Provider Diagnoses: Abdominal pain, Constipation Discharge ED - Sign-Out/Discharge Documenting (check all that apply): Sign-Out Patient Signing out patient TO: Reed Raymond - Discharge Plan Condition: Stable Disposition: HOME Patient Education Materials: Constipation (ED) Referrals: Lisbeth Odell MD [Primary Care Provider] - - Billing Disposition and Condition Condition: STABLE Disposition: Home
[2019-10-17 00:32] LABS: ABS Basophils 0.2 10^3/ul (0-0.2); ABS Eosinophils 0.1 10^3/ul (0-0.6); ABS Monocytes 1.2 10^3/ul (0-0.8); ABS Neutrophils 14.8 10^3/ul (1.5-7.7); Eosinophil % 0.6 %; Hematocrit 42 % (35-47); Hemoglobin 14.4 g/dL (12.0-16.0); Lymphocyte % 10.7 %; Mean Corpuscular HGB Conc 34 g/dL (31-36); Mean Corpuscular Hemoglobin 28 pg (27-31); Mean Corpuscular Volume 84 fL (80-97); Mean Platelet Volume 6.9 fL (7.4-10.4); Nucleated Red Blood Cells % 0.1; Platelet Count 201 10^3/uL (150-450); Red Blood Count 5.05 10^6 /uL (3.70-4.87); Red Cell Distribution Width 15 % (10-15); White Blood Count 18.2 10^3/uL (3.5-10.8)
[2019-10-17 00:52] LABS: Albumin 4.1 g/dL (3.2-5.2); Albumin/Globulin Ratio 1.4 (1-3); BUN/Creatinine Ratio 41.9 (8-20); C Reactive Protein 2.92 mg/L (<8.01); Calcium 10.2 mg/dL (8.6-10.3); EGFR African American 69.3 (>60); EGFR Non-African American 57.3 (>60); Potassium 4.1 mmol/L (3.5-5.0); Total Bilirubin 0.6 mg/dL (0.2-1.0); Total Protein 7.1 g/dL (6.4-8.9)
[2019-10-17] MEDS ORDERED: Iodixanol* (CONTRAST) 320 MG/ML 100 ML SDV IV ONE (03:16)
--- NOTE | 2019-10-17 04:03 | ED ---
Progress - Progress Note Progress Note: This pt is a sign out to Dr. Gray from [facility] at shift change 0230 10/17/2019 pending an interpretation of her CT and disposition. Her A/P CT found the followin. Fatty infiltration of the liver. 2. There has been prior cholecystectomy and hysterectomy. 3. Minimal colonic diverticulosis without diverticulitis. 4. There has been little change from 11/15/2018. No acute interval process is identified. ED physician has reviewed this report. Re-Evaluation - Re-Evaluation First Eval Re-Evaluation Time: 01:34 Comment: patient has a moderate bowel movement with enema. still nontender abd but patient points to RLQ and LLQ when asked if has any pain. with elevated white count will get a CT Course/Dx - Course Course Of Treatment: This pt is a sign out to Dr. Gray from [facility] at shift change 0230 10/17/2019 pending an interpretation of her CT and disposition. Her CT A/P found the followin. Fatty infiltration of the liver. 2. There has been prior cholecystectomy and hysterectomy. 3. Minimal colonic diverticulosis without diverticulitis. 4. There has been little change from 11/15/2018. No acute interval process is. identified. She will be discharged home with a Dx of constipation and abdominal pain. - Diagnoses Provider Diagnoses: Abdominal pain, Constipation Discharge ED - Sign-Out/Discharge Documenting (check all that apply): Patient Departure - discharge , Receiving Sign-Out Receiving patient FROM: [facility] - Discharge Plan Condition: Stable Disposition: HOME Patient Education Materials: Constipation (ED) Referrals: Lisbeth Odell MD [Primary Care Provider] - - Billing Disposition and Condition Condition: STABLE Disposition: Home - Attestation Statements Document Initiated by Lisbeth: Yes Documenting Scribe: Maco Love Provider For Whom Lisbeth is Documenting (Include Credential): Reed Gray MD Scribnaeem Attestation: Maco Cross, татьянаed for Reed Gray MD on 10/18/19 at 0438. Scribe Documentation Reviewed: Yes Provider Attestation: The documentation as recorded by the Maco enriquez accurately reflects the service I personally performed and the decisions made by me, Reed Gray MD Status of Scribe Document: Viewed
[2019-10-17 04:35] LABS: Urine Appearance Clear; Urine Bilirubin Negative (Negative); Urine Blood 2+ (Negative); Urine Color Straw; Urine Glucose 1+(50 mg/dL) (Negative); Urine Ketones Negative (Negative); Urine Nitrite Negative (Negative); Urine Protein Negative (Negative); Urine Specific Gravity 1.024 (1.010-1.030); Urine Urobilinogen Negative (Negative)
[2019-10-17 04:36] LABS: Urine Bacteria 1+ (Absent); Urine Red Blood Cell 3+(>10/hpf) (Absent); Urine Squamous Epithelial Cell Present (Absent); Urine White Blood Cell Absent (Absent)
[2019-10-17] MEDS ORDERED: PEG 3000 GI LAVAGE* 1 GALLON PO ONE (05:24)
[2019-10-17 06:09] VITALS: BP 140/64
== END 2019-10-17 06:00 | disposition home or self-care (01) ==
LOC: ED 23:33
DX: R10.9 Unspecified abdominal pain (principal); K59.00 Constipation, unspecified
CPT/HCPCS: 36415; 74018; 74177; 80053; 81003; 81015; 83690; 85025; 86140; 87086; 99284; A9270-GY; Q9967